=== PATIENT | female | born 1975 | race American Indian/Alaskan Native ===

== ENCOUNTER 2016-12-23 16:56 | Emergency (ER) | payer OTHER ==
[2016-12-23 16:56] VITALS: BMI 25.7
[2016-12-23 17:12] VITALS: BP 132/72; PULSE 89; RESP 19; TEMP 98.2; O2SAT 99
[2016-12-23] MEDS ORDERED: Belladonna-Phenobarbital PO STA (17:24)
--- NOTE | 2016-12-23 17:25 | C.PDOC ---
History Of Present Illness 41 yr old female presents to the ER with complaints of mild burning epigastric pain and several loose stool since last night. Patient also states of worse period pain. Patient denies taking any medication for the pain or recent antibiotic use. Also denies fever, nausea, vomiting, dysuria, weakness or numbness. Time Seen by Provider: 12/23/16 17:22 Chief Complaint (Nursing): Abdominal Pain History Per: Patient History/Exam Limitations: no limitations Onset/Duration Of Symptoms: Days (1) Current Symptoms Are (Timing): Still Present Severity: None Location Of Pain/Discomfort: Epigastric Past Medical History Reviewed: Historical Data, Nursing Documentation, Vital Signs Vital Signs: Last Vital Signs Temp 98.2 F 12/23/16 17:07 Pulse 89 12/23/16 17:07 Resp 19 12/23/16 17:07 BP 132/72 12/23/16 17:07 Pulse Ox 99 12/23/16 18:12 - Medical History PMH: Anemia Surgical History: Appendectomy, Cholecystectomy (X2), Tonsillectomy, - [facility] Procedures LOW CERVICAL (04/01/14) Family History: States: No Known Family Hx - Social History Hx Tobacco Use: No Hx Alcohol Use: No Hx Substance Use: No - Immunization History Hx Tetanus Toxoid Vaccination: Yes Hx Influenza Vaccination: Yes Hx Pneumococcal Vaccination: Yes Review Of Systems Except As Marked, All Systems Reviewed And Found Negative. Constitutional: Negative for: Fever Gastrointestinal: Positive for: Abdominal Pain (Epigastric), Diarrhea (Several loose stool). Negative for: Nausea, Vomiting Genitourinary: Negative for: Dysuria Neurological: Negative for: Weakness, Numbness Physical Exam - Physical Exam Appears: Non-toxic, No Acute Distress Skin: Normal Color, Warm, Dry, No Rash Head: Atraumatic, Normacephalic Eye(s): bilateral: Normal Inspection, PERRL, EOMI Oral Mucosa: Moist Neck: Normal, Normal ROM, Supple Chest: Symmetrical, No Tenderness Cardiovascular: Rhythm Regular, No Murmur Respiratory: Normal Breath Sounds, No Rales, No Rhonchi, No Stridor, No Wheezing Gastrointestinal/Abdominal: Soft, Tenderness (Slight epigastric tenderness ), No Guarding, No Rebound Extremity: Normal ROM, No Swelling Neurological/Psych: Oriented x3, Normal Speech, Normal Motor ED Course And Treatment O2 Sat by Pulse Oximetry: 99 Medical Decision Making Medical Decision Making: PLAN: * PO * Pepcid PO * Lidocaine Viscous PO Aware checked last entry 05/11 Plan dc home with meds Disposition Counseled Patient/Family Regarding: Diagnosis, Need For Followup - Disposition Disposition: HOME/ ROUTINE Disposition Time: 17:25 Condition: GOOD Prescriptions: Famotidine [Pepcid] 1 tab PO BID #14 tab oxyCODONE/Acetaminophen [Percocet 5/325 mg Tab] 1 tab PO Q4H PRN #12 tab PRN Reason: .severe pain Instructions: Abdominal Pain (ED), Acute Diarrhea (ED) - Clinical Impression Clinical Impression: Abdominal pain - Scribe Statement The provider has reviewed the documentation as recorded by the Darinel Scott Provider Attestation: All medical record entries made by the Darinel were at my direction and personally dictated by me. I have reviewed the chart and agree that the record accurately reflects my personal performance of the history, physical exam, medical decision making, and the department course for this patient. I have also personally directed, reviewed, and agree with the discharge instructions and disposition.
[2016-12-23] MEDS ORDERED: Belladonna-Phenobarbital ONE (17:49)
== END 2016-12-23 17:52 | disposition home or self-care (01) ==
LOC: C.ER 16:56
DX: R10.13 Epigastric pain (principal)

== ENCOUNTER 2017-03-01 22:33 | Emergency (ER) | payer OTHER ==
[2017-03-01 22:33] VITALS: BMI 25.7
[2017-03-01 22:42] VITALS: BP 108/76; PULSE 90; RESP 18; TEMP 98.4; O2SAT 100
--- NOTE | 2017-03-01 23:33 | C.PDOC ---
History Of Present Illness 41 year old patient presents to the ED complaining of right foot pain for the past 3 days. Patient has a history of gout. She is currently taking 500 mg of Naproxen, but the pain doesn't resolve. Patient is requesting stronger pain medications. Patient denies any injuries, fever, numbness or weakness. Time Seen by Provider: 03/01/17 22:42 Chief Complaint (Nursing): Lower Extremity Problem/Injury History Per: Patient History/Exam Limitations: no limitations Onset/Duration Of Symptoms: Days (3) Current Symptoms Are (Timing): Still Present Severity: Mild Pain Scale Rating Of: 3 Recent travel outside of the [place]: No Past Medical History Reviewed: Historical Data, Nursing Documentation, Vital Signs Vital Signs: Last Vital Signs Temp 98.4 F 03/01/17 22:42 Pulse 90 03/01/17 22:42 Resp 18 03/01/17 22:42 BP 108/76 03/01/17 22:42 Pulse Ox 100 03/01/17 23:44 - Medical History PMH: Anemia Surgical History: Appendectomy, Cholecystectomy (X2), Tonsillectomy, - [facility] Procedures LOW CERVICAL (04/01/14) Family History: States: Unknown Family Hx - Social History Hx Tobacco Use: No Hx Alcohol Use: No Hx Substance Use: No - Immunization History Hx Tetanus Toxoid Vaccination: Yes Hx Influenza Vaccination: Yes Hx Pneumococcal Vaccination: Yes Review Of Systems Except As Marked, All Systems Reviewed And Found Negative. Constitutional: Negative for: Fever Musculoskeletal: Positive for: Foot Pain (right) Neurological: Negative for: Weakness, Numbness Physical Exam - Physical Exam Appears: Non-toxic, No Acute Distress Skin: Warm, Dry, No Rash, No Ecchymosis Head: Atraumatic, Normacephalic Eye(s): bilateral: Normal Inspection Neck: Normal ROM, Supple Chest: Symmetrical Extremity: Normal ROM, No Pedal Edema, No Calf Tenderness, Capillary Refill (<2 seconds), No Deformity, No Swelling, Other (Right foot: (+) mild erythema and tenderness to the great toe, (-) swelling, (-)discharge, (+)normal ROM, (+) normal DP pulse) Neurological/Psych: Oriented x3, Normal Speech, Normal Motor, Normal Sensation Gait: Steady ED Course And Treatment O2 Sat by Pulse Oximetry: 100 (room air) Pulse Ox Interpretation: Normal Medical Decision Making Medical Decision Making: Impression: 41 y/o female with right foot pain Progress: Patient with history of gout and right foot pain. No signs of trauma or cellulitis. Patient is taking naproxen. [facility] reviewed: last narcotic was percocet 12/23/16. Will prescribe Tylenol #3 for severe pain. Advise follow up with PCP or rheumatology. Disposition Counseled Patient/Family Regarding: Diagnosis, Need For Followup, Rx Given - Disposition Disposition: HOME/ ROUTINE Disposition Time: 23:30 Condition: GOOD Additional Instructions: Take Naproxen or anti-inflammatory medication for pain Take Tylenol #3 for severe pain Follow up with your primary medical doctor or clinic in 2-5 days for further evaluation. Prescriptions: Acetaminophen with Codeine [Tylenol with Codeine No. 3 300 mg-30 mg] 1 tab PO Q8 PRN #10 tab PRN Reason: Pain, Moderate (4-7) Instructions: Gout (ED) - POA Present On Arrival: None - Clinical Impression Clinical Impression: Gout - PA / DJ INSTRUCTOR / Resident Statement MD/DO has reviewed & agrees with the documentation as recorded. - Scribe Statement The provider has reviewed the documentation as recorded by the Scribe Xin Art All medical record entries made by the Scribe were at my direction and personally dictated by me. I have reviewed the chart and agree that the record accurately reflects my personal performance of the history, physical exam, medical decision making, and the department course for this patient. I have also personally directed, reviewed, and agree with the discharge instructions and disposition.
== END 2017-03-01 23:27 | disposition home or self-care (01) ==
LOC: C.ER 22:33
DX: M10.9 Gout, unspecified (principal)

== ENCOUNTER 2017-04-12 17:43 | Emergency (ER) | payer OTHER ==
[2017-04-12 17:44] VITALS: BMI 25.7
[2017-04-12 17:55] VITALS: RESP 18; TEMP 98; O2SAT 100
[2017-04-12] MEDS ORDERED: Naproxen 550 mg Tab PO STA (18:12)
--- NOTE | 2017-04-12 18:14 | C.PDOC ---
Time Seen by Provider: 04/12/17 17:48 Chief Complaint (Nursing): Back Pain Past Medical History Vital Signs: Last Vital Signs Temp 98 F 04/12/17 17:52 Pulse 95 H 04/12/17 17:52 Resp 18 04/12/17 17:52 BP 111/75 04/12/17 17:52 Pulse Ox 100 04/12/17 17:52 - Medical History PMH: Anemia Surgical History: Appendectomy, Cholecystectomy (X2), Tonsillectomy, - [facility] Procedures LOW CERVICAL (04/01/14) Family History: States: Unknown Family Hx - Social History Hx Tobacco Use: No Hx Alcohol Use: No Hx Substance Use: No - Immunization History Hx Tetanus Toxoid Vaccination: Yes Hx Influenza Vaccination: Yes Hx Pneumococcal Vaccination: Yes ED Course And Treatment O2 Sat by Pulse Oximetry: 100 Disposition - Disposition Disposition: HOME/ ROUTINE Disposition Time: 18:12 Condition: STABLE Additional Instructions: please follow up with specialsit. return to er with worsening symptoms or concerns. Prescriptions: Cyclobenzaprine [Cyclobenzaprine HCl] 10 mg PO TID PRN #21 tab PRN Reason: Muscle Spasm Naproxen [Naprosyn] 500 mg PO BID PRN #14 tablet PRN Reason: Pain, Mild (1-3) Instructions: Sciatica (ED) - Clinical Impression Clinical Impression: Sciatica
--- NOTE | 2017-04-12 18:15 | C.PDOC ---
History Of Present Illness 41 y/o female, with past medical history of sciatica, presents to emergency department with complaints of low back radiating to the left lower extremity. Denies any fall, trauma, urinary symptoms, or fever. Time Seen by Provider: 04/12/17 17:48 Chief Complaint (Nursing): Back Pain History Per: Patient History/Exam Limitations: no limitations Onset/Duration Of Symptoms: Days Current Symptoms Are (Timing): Still Present Quality Of Discomfort: "Pain" Previous Symptoms: Back Pain. denies: Prior Injury, Prior Surgery Associated Symptoms: None. denies: Incontinence, New Weakness, New Numbness Exacerbating Factor(s): Nothing Recent travel outside of the [place]: No Additional History Per: Patient Past Medical History Reviewed: Historical Data, Nursing Documentation, Vital Signs Vital Signs: Last Vital Signs Temp 98 F 04/12/17 17:52 Pulse 89 04/12/17 19:01 Resp 18 04/12/17 19:01 BP 112/78 04/12/17 19:01 Pulse Ox 100 04/12/17 19:01 - Medical History PMH: Anemia Surgical History: Appendectomy, Cholecystectomy (X2), Tonsillectomy, - [facility] Procedures LOW CERVICAL (04/01/14) Family History: States: Unknown Family Hx - Social History Hx Tobacco Use: No Hx Alcohol Use: No Hx Substance Use: No - Immunization History Hx Tetanus Toxoid Vaccination: Yes Hx Influenza Vaccination: Yes Hx Pneumococcal Vaccination: Yes Review Of Systems Except As Marked, All Systems Reviewed And Found Negative. Constitutional: Negative for: Fever, Chills Gastrointestinal: Negative for: Nausea, Vomiting Genitourinary: Negative for: Dysuria, Frequency, Incontinence, Hematuria Musculoskeletal: Positive for: Back Pain Skin: Negative for: Rash Neurological: Negative for: Weakness, Numbness Physical Exam - Physical Exam Appears: Non-toxic, No Acute Distress Skin: Normal Color, Warm, Dry Head: Atraumatic, Normacephalic Eye(s): bilateral: Normal Inspection Neck: Normal ROM, Supple Chest: Symmetrical Cardiovascular: Rhythm Regular, No Murmur Respiratory: Normal Breath Sounds, No Rales, No Rhonchi, No Wheezing Gastrointestinal/Abdominal: Soft, No Tenderness Back: No Vertebral Tenderness, Paraspinal Tenderness (left side), Straight Leg Raising ((+) left leg) Extremity: Normal ROM, No Deformity Extremity: Bilateral: Atraumatic Neurological/Psych: Oriented x3, Normal Speech, Normal Cognition ED Course And Treatment O2 Sat by Pulse Oximetry: 100 (on RA) Pulse Ox Interpretation: Normal Progress Note: Patient was treated with Naproxen, and Flexeril. Medical Decision Making Medical Decision Making: suspected sciatica. pain improvd. neuro intact. no clincial concern for cord compression, no saddle anestheisa, Disposition - Disposition Disposition: HOME/ ROUTINE Disposition Time: 18:12 Condition: STABLE Additional Instructions: please follow up with specialsit. return to er with worsening symptoms or concerns. Prescriptions: Cyclobenzaprine [Cyclobenzaprine HCl] 10 mg PO TID PRN #21 tab PRN Reason: Muscle Spasm Naproxen [Naprosyn] 500 mg PO BID PRN #14 tablet PRN Reason: Pain, Mild (1-3) Instructions: Sciatica (ED) - Clinical Impression Clinical Impression: Sciatica - Scribe Statement The provider has reviewed the documentation as recorded by the Jodiibloyd Art All medical record entries made by the Jodiibloyd were at my direction and personally dictated by me. I have reviewed the chart and agree that the record accurately reflects my personal performance of the history, physical exam, medical decision making, and the department course for this patient. I have also personally directed, reviewed, and agree with the discharge instructions and disposition.
[2017-04-12] MEDS ORDERED: Naproxen 550 mg Tab PO ONE (18:19)
[2017-04-12 19:02] VITALS: BP 112/78; PULSE 89
== END 2017-04-12 19:02 | disposition home or self-care (01) ==
LOC: C.ER 17:43
DX: M54.32 Sciatica, left side (principal)

== ENCOUNTER 2017-06-26 09:42 | Emergency (ER) | payer OTHER ==
[2017-06-26 09:42] VITALS: BMI 25.7
[2017-06-26 10:02] VITALS: RESP 16; O2SAT 100
[2017-06-26 11:04] LABS: RBC URINE 12 /hpf (0-3); URINE BILIRUBIN NEGATIVE (NEGATIVE); URINE BLOOD 2+ (NEGATIVE); URINE COLOR Yellow (YELLOW); URINE GLUCOSE (UA) NORMAL (Normal); URINE KETONE NEGATIVE (NEGATIVE); URINE LEUKOCYTE ESTERASE NEG Leu/uL (Negative); URINE PROTEIN NEGATIVE (NEGATIVE); URINE UROBILINOGEN NORMAL mg/dL (0.2-1.0); WBC URINE 1 /hpf (0-5)
[2017-06-26 11:42] VITALS: BP 113/76; PULSE 90; TEMP 98.1
--- NOTE | 2017-06-26 13:18 | C.PDOC ---
History Of Present Illness 42 yr old female presents to the ER for evaluation of lower abdominal pain for the past 3 days. Patient states the pain increases with movement. States she has been doing more sit ups then usual. Otherwise, patient denies nausea, vomiting, diarrhea, dysuria, incontinence, hematuria, vaginal discharge, vaginal bleeding, back pain, weakness or numbness, Time Seen by Provider: 06/26/17 10:13 Chief Complaint (Nursing): Abdominal Pain History Per: Patient History/Exam Limitations: no limitations Onset/Duration Of Symptoms: Days (3) Past Medical History Reviewed: Historical Data, Nursing Documentation, Vital Signs Vital Signs: Last Vital Signs Temp 98.1 F 06/26/17 11:41 Pulse 90 06/26/17 11:41 Resp 16 06/26/17 11:41 BP 113/76 06/26/17 11:41 Pulse Ox 100 06/26/17 13:20 - Medical History PMH: Anemia Surgical History: Appendectomy, Cholecystectomy (X2), Tonsillectomy, - [facility] Procedures LOW CERVICAL (04/01/14) Family History: States: No Known Family Hx - Social History Hx Tobacco Use: No Hx Alcohol Use: No Hx Substance Use: No - Immunization History Hx Tetanus Toxoid Vaccination: Yes Hx Influenza Vaccination: Yes Hx Pneumococcal Vaccination: Yes Review Of Systems Except As Marked, All Systems Reviewed And Found Negative. Gastrointestinal: Positive for: Abdominal Pain (Lower). Negative for: Nausea, Vomiting, Diarrhea Genitourinary: Negative for: Dysuria, Incontinence, Hematuria, Vaginal Discharge , Vaginal Bleeding Musculoskeletal: Negative for: Back Pain Neurological: Negative for: Weakness, Numbness Physical Exam - Physical Exam Appears: Non-toxic, No Acute Distress Skin: Warm, Dry, No Rash Head: Atraumatic, Normacephalic Chest: Symmetrical, No Tenderness Cardiovascular: Rhythm Regular, No Murmur Respiratory: Normal Breath Sounds, No Rales, No Rhonchi, No Stridor, No Wheezing Gastrointestinal/Abdominal: Normal Exam, Soft, No Tenderness, No Guarding, No Rebound Back: Normal Inspection, No CVA Tenderness Extremity: Normal ROM, No Swelling Neurological/Psych: Oriented x3, Normal Speech, Normal Motor ED Course And Treatment O2 Sat by Pulse Oximetry: 100 (RA) Pulse Ox Interpretation: Normal Medical Decision Making Medical Decision Making: PLAN: * POC * Urinalysis Disposition - Disposition Disposition: HOME/ ROUTINE Disposition Time: 11:10 Condition: GOOD Additional Instructions: Thank you for letting us take care of you today. Your provider was Dr. Hoyt. You were treated for muscle strain. The emergency medical care you received today was directed at your acute symptoms. If you were prescribed any medication, please fill it and take as directed. It may take several days for your symptoms to resolve. Return to the Emergency Department if your symptoms worsen, do not improve, or if you have any other problems. Please contact your doctor or call one of the physicians/clinics you have been referred to that are listed on the Patient Visit Information form that is included in your discharge packet. Bring any paperwork you were given at discharge with you along with any medications you are taking to your follow up visit. Our treatment cannot replace ongoing medical care by a primary care provider (PCP) outside of the emergency department. Thank you for allowing the [facility] team to be part of your care today. Follow up with your doctor in 2-3 days for re-evaluation. You can take Tylenol or Ibuprofen for any discomfort that you experience. Instructions: Muscle Strain (ED) Forms: [employer] (Welsh) - Clinical Impression Clinical Impression: Muscle strain - Scribe Statement The provider has reviewed the documentation as recorded by the Scribe Roxanne Scott Provider Attestation: All medical record entries made by the Scribe were at my direction and personally dictated by me. I have reviewed the chart and agree that the record accurately reflects my personal performance of the history, physical exam, medical decision making, and the department course for this patient. I have also personally directed, reviewed, and agree with the discharge instructions and disposition.
== END 2017-06-26 11:45 | disposition home or self-care (01) ==
LOC: C.ER 09:42
DX: S39.011A Strain of muscle, fascia and tendon of abdomen, initial encounter (principal); X50.0XXA Overexertion from strenuous movement or load, initial encounter; Y93.89 Activity, other specified; Y92.89 Other specified places as the place of occurrence of the external cause

== ENCOUNTER 2017-07-25 22:25 | Emergency (ER) | payer OTHER ==
[2017-07-25 22:39] VITALS: BMI 24.9
[2017-07-25] MEDS ORDERED: Albuterol HFA 90 mcg/actuation (8 g) INH STA (22:46)
[2017-07-25 22:54] VITALS: TEMP 98.5
[2017-07-25 23:34] VITALS: BP 110/74; PULSE 80; RESP 19; O2SAT 100
--- NOTE | 2017-07-25 23:52 | C.PDOC ---
Time Seen by Provider: 07/25/17 22:31 Chief Complaint (Nursing): Cough, Cold, Congestion History Per: Patient Onset/Duration Of Symptoms: Days (about 2 weeks) Current Symptoms Are (Timing): Still Present Associated Symptoms: Cough Severity: Moderate Recent travel outside of the [place]: No Additional History Per: Prior Records Past Medical History Reviewed: Historical Data, Nursing Documentation, Vital Signs Vital Signs: Last Vital Signs Temp 98.5 F 07/25/17 22:38 Pulse 80 07/25/17 23:33 Resp 19 07/25/17 23:33 BP 110/74 07/25/17 23:33 Pulse Ox 100 07/25/17 23:33 - Medical History PMH: Anemia Surgical History: Appendectomy, Cholecystectomy (X2), Tonsillectomy, - [facility] Procedures LOW CERVICAL (04/01/14) Family History: States: Unknown Family Hx - Social History Hx Tobacco Use: No Hx Alcohol Use: No Hx Substance Use: No - Immunization History Hx Tetanus Toxoid Vaccination: Yes Hx Influenza Vaccination: Yes Hx Pneumococcal Vaccination: Yes Review Of Systems Except As Marked, All Systems Reviewed And Found Negative. Constitutional: Negative for: Fever Cardiovascular: Negative for: Chest Pain Respiratory: Positive for: Cough. Negative for: Shortness of Breath, Hemoptysis Gastrointestinal: Negative for: Vomiting, Abdominal Pain Musculoskeletal: Negative for: Neck Pain, Back Pain, Leg Pain Skin: Negative for: Rash Neurological: Negative for: Weakness, Numbness Physical Exam - Physical Exam Appears: Non-toxic, No Acute Distress Skin: Normal Color, Warm, Dry, No Rash Head: Atraumatic, Normacephalic Eye(s): bilateral: Normal Inspection, PERRL, EOMI Neck: Normal ROM, Supple Cardiovascular: Rhythm Regular Respiratory: No Accessory Muscle Use, Wheezing (mild, intermittent) Gastrointestinal/Abdominal: Soft, No Tenderness Back: No CVA Tenderness Extremity: Normal ROM Neurological/Psych: Oriented x3, Normal Motor, Normal Sensation ED Course And Treatment O2 Sat by Pulse Oximetry: 100 Pulse Ox Interpretation: Normal Reassessment Condition: Improved Disposition Counseled Patient/Family Regarding: Studies Performed, Diagnosis, Need For Followup, Rx Given - Disposition Referrals: Sydney Snider MD [Staff Provider] - Disposition: HOME/ ROUTINE Disposition Time: 23:51 Condition: IMPROVED Additional Instructions: Follow up with your doctor. Return to the ER if you develop fever, shortness of breath, worsening of symptoms or if you have any other concerns. Prescriptions: Benzonatate 200 mg PO TID PRN #30 capsule PRN Reason: Cough predniSONE [predniSONE Tab] 2 tab PO DAILY #6 tab Instructions: Upper Respiratory Infection (ED) - Clinical Impression Clinical Impression: Upper respiratory infection
== END 2017-07-25 23:55 | disposition home or self-care (01) ==
LOC: C.ER 22:25
DX: J06.9 Acute upper respiratory infection, unspecified (principal)

== ENCOUNTER 2017-10-27 11:46 | Emergency (ER) | payer OTHER ==
[2017-10-27 11:46] VITALS: BMI 24.9
[2017-10-27 12:06] VITALS: O2SAT 99
--- NOTE | 2017-10-27 13:48 | RAD ---
HISTORY: cough/pain COMPARISON: None available. TECHNIQUE: Chest PA and lateral FINDINGS: Examination limited by habitus. LUNGS: No focal consolidation. Please note that chest x-ray has limited sensitivity for the detection of pulmonary masses. PLEURA: No significant pleural effusion identified. No definite pneumothorax . CARDIOVASCULAR: The cardiomediastinal silhouette appears within normal limits of size. OSSEOUS STRUCTURES: No acute osseous abnormality identified. VISUALIZED UPPER ABDOMEN: Unremarkable. OTHER FINDINGS: None. IMPRESSION: No focal consolidation, significant pleural effusion, or definite pneumothorax identified.
--- NOTE | 2017-10-27 14:30 | C.PDOC ---
History Of Present Illness 42 y/o female with PMHx of Anemia presents to ED with complaints of chest tightness, cough and muscle aches for 2 days. Patient denies recent travel, sick contacts, sob, nausea, vomiting or any other complaints at this time. Time Seen by Provider: 10/27/17 12:28 Chief Complaint (Nursing): Chest Pain History Per: Patient History/Exam Limitations: no limitations Onset/Duration Of Symptoms: Days Current Symptoms Are (Timing): Still Present Quality: Tightness Past Medical History Reviewed: Historical Data, Nursing Documentation, Vital Signs Vital Signs: Last Vital Signs Temp 98.6 F 10/27/17 14:33 Pulse 88 10/27/17 14:33 Resp 18 10/27/17 14:33 BP 126/72 10/27/17 14:33 Pulse Ox 99 10/27/17 15:05 - Medical History PMH: Anemia Surgical History: Appendectomy, Cholecystectomy (X2), Tonsillectomy, - [facility] Procedures LOW CERVICAL (04/01/14) Family History: States: No Known Family Hx - Social History Hx Tobacco Use: No Hx Alcohol Use: No Hx Substance Use: No - Immunization History Hx Tetanus Toxoid Vaccination: Yes Hx Influenza Vaccination: Yes Hx Pneumococcal Vaccination: Yes Review Of Systems Constitutional: Negative for: Fever, Chills Cardiovascular: Positive for: Chest Pain Respiratory: Positive for: Cough. Negative for: Shortness of Breath Gastrointestinal: Negative for: Nausea, Vomiting Musculoskeletal: Positive for: Other (Muscle aches) Skin: Negative for: Rash Physical Exam - Physical Exam Appears: Non-toxic, No Acute Distress Skin: Warm, Dry, No Rash Head: Atraumatic, Normacephalic Oral Mucosa: Moist Neck: Supple Chest: Tenderness (Anterior Chest wall to palpation ) Cardiovascular: Rhythm Regular Respiratory: Normal Breath Sounds, No Rales, No Rhonchi, No Wheezing Gastrointestinal/Abdominal: Soft, No Tenderness, No Guarding, No Rebound Extremity: No Pedal Edema, Capillary Refill (<2 seconds) Neurological/Psych: Oriented x3 ED Course And Treatment ECG: Interpreted By Me, Viewed By Me ECG Rhythm: Sinus Rhythm Rate From EC (BPM) O2 Sat by Pulse Oximetry: 99 (RA) Pulse Ox Interpretation: Normal - Radiology CXR Interpretation: Yes: No Acute Disease. No: Cardiomegaly, Pnemothorax - Other Rad CXR X-Ray: Viewed By Me, Read By Radiologist Interpretation: Accession No. : [id number]. Patient Name / ID : BON Fernandes / [id number]. Exam Date : 10/27/2017 12:54:15 ( Approved ). Study Comment : Sex / Age : F / 42Y. Creator : Erendira Green MD. Dictator : Erendira Green MD. Cushion Cover Inspector : Head Of Music : Erendira Green MD. Approver2 : Report Date : 10/27/2017 13:46:46. My Comment : . HISTORY: cough/pain. COMPARISON: None available. TECHNIQUE: Chest PA and lateral. FINDINGS: Examination limited by habitus. LUNGS: No focal consolidation. Please note that chest x-ray has limited sensitivity for the detection of pulmonary masses. PLEURA: No significant pleural effusion identified. No definite pneumothorax . CARDIOVASCULAR: The cardiomediastinal silhouette appears within normal limits of size. OSSEOUS STRUCTURES: No acute osseous abnormality identified. VISUALIZED UPPER ABDOMEN: Unremarkable. OTHER FINDINGS: None. IMPRESSION: No focal consolidation, significant pleural effusion, or definite pneumothorax identified. Progress Note: Blood work, cxr, ecg, Influenza test ordered and negative. Patient is stable to be d/c home with PMD follow up. Disposition - Disposition Referrals: Sydney Snider MD [Staff Provider] - Disposition: HOME/ ROUTINE Disposition Time: 14:27 Condition: STABLE Additional Instructions: Follow up with PMD within 1-2 days. Return to Ed if feel worse. Prescriptions: Fluticasone Nasal [Flonase] 1 spr NS BID #1 spr Promethazine HCl/Codeine [Prometh-Codein 6.25-10 mg/5 ml] 5 ml PO .Q4-6H #150 ml Azithromycin [Zithromax] 250 mg PO DAILY #6 tab Instructions: Acute Bronchitis (ED) Forms: [employer] (Filipino) - Clinical Impression Clinical Impression: Bronchitis - PA / GENERAL ASSEMBLER / Resident Statement MD/DO has reviewed & agrees with the documentation as recorded. - Scribe Statement The provider has reviewed the documentation as recorded by the Jodiibloyd El All medical record entries made by the Darinel were at my direction and personally dictated by me. I have reviewed the chart and agree that the record accurately reflects my personal performance of the history, physical exam, medical decision making, and the department course for this patient. I have also personally directed, reviewed, and agree with the discharge instructions and disposition.
[2017-10-27 14:34] VITALS: BP 126/72; PULSE 88; RESP 18; TEMP 98.6
--- NOTE | 2017-10-28 19:25 | CARD ---
APPROVED REPORT EKG Measurement Heart [id number] <Conclusion> Normal sinus rhythm Normal ECG
== END 2017-10-27 14:34 | disposition home or self-care (01) ==
LOC: C.ER 11:46
DX: J40 Bronchitis, not specified as acute or chronic (principal)

== ENCOUNTER 2017-11-10 10:29 | Day surgery (SDC) | payer OTHER ==
[2017-11-03 08:31] VITALS: BMI 25.7
[2017-11-10] MEDS ORDERED: Propofol 10 mg/ml Inj (20 ML) ONE (11:30)
[2017-11-10] MEDS ORDERED: Midazolam 2 MG/2 ML VIAL ONE (11:30)
[2017-11-10] MEDS ORDERED: Lactated Ringer's 1,000 ML IV ONE ×2 (11:30→13:30)
[2017-11-10] MEDS ORDERED: Bupivacaine HCl 0.25% PF (10 ml) Inj ONE ×2 (11:33→11:40)
[2017-11-10] MEDS ORDERED: Succinylcholine Chloride 20 mg/ml Syr (5 ml) IV ONE (11:34)
[2017-11-10] MEDS ORDERED: Lidocaine Hydrochloride 5 ML INJ ONE (11:34)
[2017-11-10] MEDS ORDERED: Rocuronium 10 mg/ml (5 ml) ONE (11:34)
[2017-11-10] MEDS ORDERED: Esmolol 100 mg/10ml Inj IV ONE (13:04)
[2017-11-10] MEDS: HYDROmorphone 0.5 mg/0.5 ml ISec IVP PRN ×2 (15:00→15:30)
[2017-11-10 16:33] VITALS: BP 100/70; PULSE 73; RESP 18; TEMP 98; O2SAT 100
--- NOTE | 2017-11-14 11:45 | OP ---
PROCEDURE DATE: 11/10/2017. PREOPERATIVE DIAGNOSIS: Elective sterilization. POSTOPERATIVE DIAGNOSIS: Elective sterilization. PROCEDURE: Bilateral tubal ligation with bipolar cautery. SURGEON: Petrona Lambert MD. MANAGER OF RECRUITING: Will Winston MD. TYPE OF ANESTHESIA: General. ESTIMATED BLOOD LOSS: Less than 20 mL. COMPLICATIONS: None. Wagoner catheter had been placed to drainage and more than 20 mL of urine were noted. The catheter was removed following completion of the procedure. PATHOLOGY: No specimens. DESTINATION: The patient to recovery room in satisfactory condition. INDICATIONS: The patient is a 42-year-old female with a history of two sections and appendectomy who requested permanent sterilization. She declined hormonal contraception or IUD and stated she wanted a permanent method of management. Informed consent was obtained from the patient. Rest of the procedure were discussed including possible future ectopic . The patient agreed with planned procedure and desired a permanent sterilization. PROCEDURE: The patient was taken to the operating room with the IV running. She was placed in the dorsal supine position and underwent general anesthesia. She was then placed in the dorsal lithotomy position and exam under anesthesia showed the abdomen to be quite obese with the skin appearing flaccid and the abdomen was pendulous. At the site of the right appendectomy scar incision multiple scarring was noted around the surrounding skin. On pelvic exam the uterus was mobile and appeared to be of normal size. The adnexa showed no adnexal masses. The patient was then prepped and draped in the routine sterile fashion. A bivalve speculum was placed into the vagina and the anterior lip of the cervix was grasped with a single tooth tenaculum. The cervical os was dilated with the Mike dilator and the HUMI uterine manipulator was placed. Attention was then turned to the abdomen where a 5-mm infraumbilical incision was made with the scalpel. A 5 mm trocar was then used. Towel clamp was placed on the either side of the umbilicus at 3 and 9 o' clock approximately 2 cm from the umbilicus and a 5 mm trocar was used to attempt direct entry in to the abdomen. This was attempted approximately three times due to the obesity of the abdomen. Entry was not obtained and it was decided to proceed with the Adele trocar. The infraumbilical incision was extended to approximately 11 mm and the subcutaneous tissue was dissected down with Kaelyn. The fascia was subsequently identified and grasped on the either side with Kochers. Due to the thickness of the fascia, the tissue was incised with a scalpel following entry. Following this, the stay sutures of the 0 Vicryl were placed on either side of the fascia and the Adele was placed to confirm intraabdominal placement. The stay sutures were then sutured to the port. The abdomen was then insufflated with carbon dioxide. Following adequate insufflation, approximately 3.5 cm above the synthesis pubis and midline, a second port was attempted to be placed; however, placement was not obtained and so a lower incision just slightly superior to the Pfannenstiel and approximately 2 cm above the symphysis pubis was made. This incision was approximately 11 mm in size. The tissue was then dissected down with the Kaelyn followed by direct placement of the trocar. Of note, following entry into the abdomen, multiple adhesions were visualized with adhesions of the midline anterior abdominal wall and also adhesions along the bilateral adnexa along the more distal portions of the tube, which limited the mobility of either fallopian tube. The left fallopian tube was noted to be clubbed. Due to the nature of the adhesions, the camera was placed on either side of the adhesions to visualize either adnexa. The right fallopian tube was grasped approximately 2 cm from the interstitial portion of the tube with the LigaSure and was coagulated. Of note, the tissue was coagulated two more times immediately distal to the initial site of the coagulation. This was followed by incision of the tube along the central portion of the coagulation. The adhesions along the anterior abdominal wall was examined and was coagulated and incised. Following lysis of this adhesion, the pelvis area could be visualized more adequately. Attention was then turned to the left fallopian tube, which again was grasped approximately 2 cm distal to the interstitial portion with the LigaSure and was coagulated. This was again followed by further coagulation immediately distal to this to coagulate approximately 3 cm of the tube, which was then subsequently incising the central portion of this area. Following completion of the procedure, excellent hemostasis was confirmed. The inferior port was removed following opening of the port to rule out CO2 gas to escape in. The infraumbilical port was also removed. The two sutures on either side of the fascia were tied to one another and the central portion of that was also ligated again with 0 Vicryl. The subcutaneous tissue was closed with 3-0 Chromic and the skin was closed with 4-0 Monocryl in a subcuticular fashion. The midline incision at the site of the trocar placement, the fascia was grasped and reapproximated with 0 Vicryl. This was followed by a closure of the incision with Dermabond. The incision immediately superior to this which had only resulted in the skin incision and the abdominal entry was closed also with Dermabond. Attention was then turned to the pelvic area and the HUMI uterine manipulator was removed. Good hemostasis was confirmed. The patient was awakened from her anesthesia and returned to recovery room in satisfactory condition. Petrona Lambert MD
== END 2017-11-10 17:51 | disposition home or self-care (01) ==
LOC: C.SDS 10:29
PROVIDERS: ATTEND Obstetrics & Gynecology
DX: Z30.2 Encounter for sterilization (principal); K66.0 Peritoneal adhesions (postprocedural) (postinfection)
CPT/HCPCS: 49329; 58670; J1100; J1170; J2250; J2405; J2704; J3010; J7120

== ENCOUNTER 2017-12-17 23:36 | Emergency (ER) | payer OTHER ==
[2017-12-17 23:36] VITALS: BMI 25.7
[2017-12-17 23:44] VITALS: TEMP 97.7; O2SAT 99
[2017-12-18] MEDS ORDERED: Sodium Chloride 0.9% 1,000 ML ONE (00:11)
[2017-12-18] MEDS ORDERED: Morphine 4 MG/ML VIAL ONE ×3 (00:11→03:26)
[2017-12-18] MEDS ORDERED: Sodium Chloride 0.9% 1,000 ML IV ONE (00:14)
[2017-12-18] MEDS ORDERED: Morphine 4 MG/ML VIAL IV ONE ×2 (00:15→02:53)
--- NOTE | 2017-12-18 00:28 | C.PDOC ---
History Of Present Illness 42 y/o female presents to the Emergency Department complaining of left flank pain with sudden onset 3 hours ago. Pain is constant, sharp, rated 10/10, and radiating down the left leg. Symptoms associated with nausea and vomiting, (non- bilious, non-bloody). Patient has never had this pain before. She denies any diarrhea, fever, or chills. PMD: Med Surg Clinic Time Seen by Provider: 12/18/17 00:10 Chief Complaint (Nursing): Abdominal Pain History Per: Patient History/Exam Limitations: no limitations Onset/Duration Of Symptoms: Hrs (x3) Current Symptoms Are (Timing): Still Present Pain Scale Rating Of: 10 Associated Symptoms: Nausea, Vomiting Past Medical History Reviewed: Historical Data, Nursing Documentation, Vital Signs Vital Signs: Last Vital Signs Temp 97.7 F 12/17/17 23:44 Pulse 94 H 12/18/17 03:55 Resp 20 12/18/17 03:55 BP 111/78 12/18/17 03:55 Pulse Ox 99 12/18/17 04:11 - Medical History PMH: Anemia, Bronchitis, Gall Bladder Disease Surgical History: Appendectomy (in 1990), Cholecystectomy, Tonsillectomy, C- Section Other Surgeries: Left retinal repair in 2011, tubal ligation 10/2017 - [facility] Procedures LOW CERVICAL (04/01/14) Family History: States: Unknown Family Hx - Social History Hx Tobacco Use: No Hx Alcohol Use: No Hx Substance Use: No - Immunization History Hx Tetanus Toxoid Vaccination: Yes Hx Influenza Vaccination: Yes Hx Pneumococcal Vaccination: Yes Review Of Systems Except As Marked, All Systems Reviewed And Found Negative. Constitutional: Negative for: Fever, Chills Eyes: Negative for: Pain, Vision Change ENT: Negative for: Ear Pain, Ear Discharge, Nose Congestion, Mouth Pain Cardiovascular: Negative for: Chest Pain, Palpitations, Orthopnea Respiratory: Negative for: Cough, Shortness of Breath, SOB with Excertion Gastrointestinal: Positive for: Nausea, Vomiting, Abdominal Pain (left flank pain). Negative for: Diarrhea Genitourinary: Negative for: Dysuria, Hematuria Musculoskeletal: Negative for: Neck Pain, Shoulder Pain Skin: Negative for: Rash Neurological: Negative for: Weakness Psych: Negative for: Anxiety Physical Exam - Physical Exam Appears: Non-toxic, No Acute Distress Skin: Normal Color, Warm, Dry Head: Atraumatic, Normacephalic Eye(s): bilateral: Normal Inspection, PERRL, EOMI Nose: Normal Neck: Normal ROM, Supple Chest: Symmetrical Cardiovascular: Rhythm Regular, No Murmur Respiratory: Normal Breath Sounds, No Accessory Muscle Use Gastrointestinal/Abdominal: Soft, No Tenderness, No Distention Back: CVA Tenderness (left), No Straight Leg Raising Extremity: Bilateral: Atraumatic, Normal Color And Temperature, Normal ROM Neurological/Psych: Oriented x3, Normal Speech ED Course And Treatment - Laboratory Results Result Diagrams: 12/18/17 00:35 12/18/17 00:35 O2 Sat by Pulse Oximetry: 99 (RA) Pulse Ox Interpretation: Normal - CT Scan/US CT abd/pelvis Other Rad Studies (CT/US): Read By Radiologist, Radiology Report Reviewed CT/US Interpretation: FINDINGS: Limitations: Lack of intravenous contrast. Lower thorax: Minimal atelectasis. ABDOMEN: Liver: Unremarkable. Gallbladder and bile ducts: No calcified stones. No ductal dilation. Pancreas: Unremarkable. No ductal dilation. Spleen: No splenomegaly. Adrenals: No mass. Kidneys and ureters: Probable RIGHT renal cyst. Punctate calculus within RIGHT kidney. Mild. pelvocaliectasis of LEFT kidney. Mildly dilated LEFT proximal ureter. 0.3 x 0.3 x 0.4 cm calculus. within LEFT mid ureter. Stomach and bowel: Segmental areas of probable underdistention of colon. No definite mural. thickening. No obstruction. Appendix: Appendectomy. PELVIS: Bladder: Unremarkable. No stones. Reproductive: Unremarkable as visualized. ABDOMEN and PELVIS: Intraperitoneal space: No significant fluid collection. No free air. Bones/joints: No acute fracture. Soft tissues: Tiny umbilical hernia containing fat. Mild focal scarring lower anterior abdominal wall. Vasculature : Several rounded calcifications within retroperitoneum and pelvis, most likely. phleboliths. No aneurysm. Lymph nodes: No pathologically enlarged lymph nodes. IMPRESSION: 1. LEFT mid ureteral calculus with mild hydroureteronephrosis. 2. Incidental/non-acute findings are described above. Thank you for allowing us to participate in the care of your patient. Dictated and Authenticated by: Luis Carlos Mejia MD. 12/18/2017 2:33 AM Eastern Time ([place] & [place]) Medical Decision Making Medical Decision Making: Prior records reviewed: Patient was last seen here in the ED on 10/27 for chest pain and was diagnosed with bronchitis. Prior to that patient was seen 07/25/17 for URI, and 06/26/17 with muscle strain. Initial Impression: 42 year old with left flank pain Time: 00:16 Initial Plan: * HCG, qualitative urine * Urinalysis * CMP * CBC * Morphine 4 mg IV * Reglan 10 mg IV * IV fluids * Toradol 15 mg IV * CT Abd/Pelvis W/O contrast 00:51 On reevaluation, patient feels improved after meds given. Labs reviewed: CBC is unremarkable 2:15 Pain returned, will give second dose of Morphine. 3:52 On reevaluation patient reports she feels better. Will discharge home with prescription for Naprosyn and Percocet. Counseled regarding diagnosis of kidney stones and the need for follow up with urologist. Patient is agreeable with and understanding of discharge plan. Return precautions discussed in detail. Disposition Counseled Patient/Family Regarding: Studies Performed, Diagnosis, Rx Given - Disposition Referrals: Ron Clay MD [Staff Provider] - Manjit Mccann MD [Staff Provider] - Disposition: HOME/ ROUTINE Disposition Time: 03:58 Condition: STABLE Prescriptions: Naproxen [Naprosyn] 500 mg PO BID PRN #10 tablet PRN Reason: Pain, Moderate (4-7) oxyCODONE/Acetaminophen [Percocet 5/325 mg Tab] 1 ea PO Q6 PRN #10 tab PRN Reason: Pain, Severe (8-10) Instructions: Hydronephrosis, Adult (DC) Forms: [facility] (Sudanese) - POA Present On Arrival: None - Clinical Impression Clinical Impression: Nausea, Vomiting, Ureteral stone with hydronephrosis - Scribe Statement The provider has reviewed the documentation as recorded by the Darinel Elizalde Provider Attestation: All medical record entries made by the Darinel were at my direction and personally dictated by me. I have reviewed the chart and agree that the record accurately reflects my personal performance of the history, physical exam, medical decision making, and the department course for this patient. I have also personally directed, reviewed, and agree with the discharge instructions and disposition.
[2017-12-18 00:46] LABS: BASO % 0.4 % (0.0-2.0); EOS # 0.1 K/uL (0.0-0.7); EOS % 1.4 % (0.0-4.0); HEMOGLOBIN 10.7 g/dL (11.0-16.0); LYMPH # 2.3 K/uL (1.0-4.3); LYMPH % 44.7 % (20.0-40.0); MEAN CELL VOLUME 82.2 fL (81.0-99.0); MEAN CORPUSCULAR HEMOGLOBIN 27.3 pg (27.0-31.0); MEAN CORPUSCULAR HGB CONC 33.2 g/dL (33.0-37.0); MEAN PLATELET VOLUME 7.6 fL (7.2-11.7); MONO # 0.5 K/uL (0.0-0.8); MONO % 8.8 % (0.0-10.0); NEUT # 2.3 K/uL (1.8-7.0); NEUT % 44.7 % (50.0-75.0); NRBC % 0.1 % (0.0-2.0); RBC 3.94 Mil/uL (3.80-5.20); RED CELL DISTRIBUTION WIDTH 14.5 % (11.5-14.5); WHITE BLOOD COUNT 5.2 K/uL (4.8-10.8)
[2017-12-18 00:57] LABS: ALB/GLOB RATIO 1.1 (1.0-2.1); ALBUMIN 4.1 g/dL (3.5-5.0); ALT/SGPT 29 U/L (9-52); AST/SGOT 26 U/L (14-36); BLOOD UREA NITROGEN 13 mg/dL (7-17); GFR AFRICAN-AMERICAN > 60; GFR NON-AFRICAN AMERICAN > 60
[2017-12-18 01:26] LABS: SQUAMOUS EPITHIAL 4 /hpf (0-5); URINE BILIRUBIN NEGATIVE (NEGATIVE); URINE BLOOD 3+ (NEGATIVE); URINE CLARITY Hazy (Clear); URINE COLOR Yellow (YELLOW); URINE GLUCOSE (UA) NORMAL (Normal); URINE LEUKOCYTE ESTERASE NEG Leu/uL (Negative); URINE PROTEIN 2+ mg/dL (NEGATIVE); URINE UROBILINOGEN NORMAL mg/dL (0.2-1.0)
[2017-12-18 01:30] LABS: HCG,QUALITATIVE URINE NEGATIVE (NEGATIVE)
[2017-12-18 02:29] VITALS: RESP 20
--- NOTE | 2017-12-18 02:33 | CT ---
EXAM: CT Abdomen and Pelvis Without Intravenous Contrast CLINICAL HISTORY: 42 years old, female; Pain; Abdominal pain; Flank; Left lower quadrant (llq); Prior surgery; Surgery date: 6+ months; Surgery type: Appendectomy; Additional info: Abd pain TECHNIQUE: Axial computed tomography images of the abdomen and pelvis without intravenous contrast. All CT scans at this facility use one or more dose reduction techniques, viz.: automated exposure control; ma/kV adjustment per patient size (including targeted exams where dose is matched to indication; i.e. head); or iterative reconstruction technique. Coronal and sagittal reformatted images were created and reviewed. COMPARISON: No relevant prior studies available. FINDINGS: Limitations: Lack of intravenous contrast. Lower thorax: Minimal atelectasis. ABDOMEN: Liver: Unremarkable. Gallbladder and bile ducts: No calcified stones. No ductal dilation. Pancreas: Unremarkable. No ductal dilation. Spleen: No splenomegaly. Adrenals: No mass. Kidneys and ureters: Probable RIGHT renal cyst. Punctate calculus within RIGHT kidney. Mild pelvocaliectasis of LEFT kidney. Mildly dilated LEFT proximal ureter. 0.3 x 0.3 x 0.4 cm calculus within LEFT mid ureter. Stomach and bowel: Segmental areas of probable underdistention of colon. No definite mural thickening. No obstruction. Appendix: Appendectomy. PELVIS: Bladder: Unremarkable. No stones. Reproductive: Unremarkable as visualized. ABDOMEN and PELVIS: Intraperitoneal space: No significant fluid collection. No free air. Bones/joints: No acute fracture. Soft tissues: Tiny umbilical hernia containing fat. Mild focal scarring lower anterior abdominal wall Vasculature: Several rounded calcifications within retroperitoneum and pelvis, most likely phleboliths. No aneurysm. Lymph nodes: No pathologically enlarged lymph nodes. IMPRESSION: 1. LEFT mid ureteral calculus with mild hydroureteronephrosis. 2. Incidental/non-acute findings are described above.
[2017-12-18 04:21] VITALS: BP 111/78; PULSE 94
== END 2017-12-18 03:50 | disposition home or self-care (01) ==
LOC: C.ER 23:36
DX: N13.2 Hydronephrosis with renal and ureteral calculous obstruction (principal); R11.2 Nausea with vomiting, unspecified
CPT/HCPCS: 74176; 80053; 81001; 84702; 84703; 85025; 96374; 96375; 96376; 99285; J1885; J2270; J2765; J7040

== ENCOUNTER 2017-12-18 13:47 | Inpatient (IN) | payer OTHER ==
[2017-12-18 13:52] VITALS: BMI 26.6
[2017-12-18] MEDS ORDERED: Sodium Chloride 0.9% 1,000 ML IV ONE ×2 (13:57→16:18)
[2017-12-18] MEDS ORDERED: Sodium Chloride 0.9% 1,000 ML ONE (14:10)
[2017-12-18 14:11] LABS: BASO % 0.3 % (0.0-2.0); EOS % 0.2 % (0.0-4.0); HEMOGLOBIN 10.1 g/dL (11.0-16.0); LYMPH # 0.7 K/uL (1.0-4.3); LYMPH % 9.1 % (20.0-40.0); MEAN CELL VOLUME 82.2 fL (81.0-99.0); MEAN CORPUSCULAR HEMOGLOBIN 27.3 pg (27.0-31.0); MEAN CORPUSCULAR HGB CONC 33.3 g/dL (33.0-37.0); MEAN PLATELET VOLUME 7.4 fL (7.2-11.7); MONO # 0.6 K/uL (0.0-0.8); MONO % 7.5 % (0.0-10.0); NEUT # 6.7 K/uL (1.8-7.0); NEUT % 82.9 % (50.0-75.0); NRBC % 0.1 % (0.0-2.0); PLATELET COUNT 368 K/uL (130-400); RBC 3.71 Mil/uL (3.80-5.20); RED CELL DISTRIBUTION WIDTH 14.7 % (11.5-14.5); WHITE BLOOD COUNT 8.1 K/uL (4.8-10.8)
--- NOTE | 2017-12-18 14:21 | C.PDOC ---
History Of Present Illness Patient is a 42 y/o female who presents to the ED with complaints of left flank and left lower quadrant abdominal pain. Patient reports to have been seen last night in ED and diagnosed with left kidney stone and hydronephrosis; patient was advised to be admitted, but decided to go home with percocets for pain. Patient notes onset of vomiting and intolerable pain at home, prompting ED visit today. Denies fever, chills, or urinary symptoms. No other physical complaints at this time. Time Seen by Provider: 12/18/17 13:57 Chief Complaint (Nursing): Back Pain History Per: Patient History/Exam Limitations: no limitations Onset/Duration Of Symptoms: Days Current Symptoms Are (Timing): Worse Recent travel outside of the [place]: No Past Medical History Reviewed: Historical Data, Nursing Documentation, Vital Signs Vital Signs: Last Vital Signs Temp 98.6 F 12/18/17 13:52 Pulse 86 12/18/17 13:52 Resp 20 12/18/17 13:52 BP 110/64 12/18/17 13:52 Pulse Ox 99 12/18/17 14:29 - Medical History PMH: Anemia, Bronchitis, Gall Bladder Disease, Kidney Stones Surgical History: Appendectomy (in 1990), Cholecystectomy, Tonsillectomy, C- Section - [facility] Procedures LOW CERVICAL (04/01/14) Family History: States: No Known Family Hx - Social History Hx Tobacco Use: No Hx Alcohol Use: No Hx Substance Use: No - Immunization History Hx Tetanus Toxoid Vaccination: Yes Hx Influenza Vaccination: Yes Hx Pneumococcal Vaccination: Yes Review Of Systems Constitutional: Negative for: Fever, Chills Gastrointestinal: Positive for: Vomiting, Abdominal Pain (left flank and LLQ) Genitourinary: Negative for: Dysuria, Frequency, Hematuria, Vaginal Discharge Physical Exam - Physical Exam Appears: Well, Non-toxic, No Acute Distress Skin: Normal Color, Warm, Dry Head: Atraumatic, Normacephalic Eye(s): bilateral: Normal Inspection Oral Mucosa: Moist Chest: Symmetrical Cardiovascular: Rhythm Regular, No Murmur Respiratory: Normal Breath Sounds, No Rales, No Rhonchi, No Wheezing Gastrointestinal/Abdominal: Soft, No Tenderness, No Guarding, No Rebound Back: CVA Tenderness (mild left CVA) Neurological/Psych: Oriented x3, Normal Speech, Normal Cognition ED Course And Treatment - Laboratory Results Result Diagrams: 12/18/17 14:06 12/18/17 14:06 Lab Interpretation: No Acute Changes O2 Sat by Pulse Oximetry: 99 Pulse Ox Interpretation: Normal Progress Note: Blood work and UA ordered. Toradol, zofran, and IV fluids administered. Reevaluation Time: 14:46 Reassessment Condition: Improved (Patient comfortable in ED.) - Physician Consult Information Physician Contacted: Salas Magallanes Outcome Of Conversation: Patient accepted for admission and treatment of left renal colic. Disposition - Disposition Disposition: HOSPITALIZED Disposition Time: 14:47 Condition: STABLE - POA Present On Arrival: None - Clinical Impression Clinical Impression: Renal colic on left side - Scribe Statement The provider has reviewed the documentation as recorded by the Scribe Lalitha Louise All medical record entries made by the Scribe were at my direction and personally dictated by me. I have reviewed the chart and agree that the record accurately reflects my personal performance of the history, physical exam, medical decision making, and the department course for this patient. I have also personally directed, reviewed, and agree with the discharge instructions and disposition.
[2017-12-18 14:24] LABS: ALB/GLOB RATIO 1.2 (1.0-2.1); ALT/SGPT 14 U/L (9-52); AST/SGOT 29 U/L (14-36); BLOOD UREA NITROGEN 11 mg/dL (7-17); CALCIUM 8.5 mg/dl (8.6-10.4); GFR AFRICAN-AMERICAN > 60; GFR NON-AFRICAN AMERICAN > 60
[2017-12-18] MEDS ORDERED: Alum-Mag Hydrox-Simethicone Susp (30 mL) PO STA (14:48)
[2017-12-18] MEDS ORDERED: Alum-Mag Hydrox-Simethicone Susp (30 mL) ONE (14:56)
[2017-12-18 15:09] LABS: EOSINOPHIL 1 % (0-4); LYMPHOCYTE 9 % (20-40); MONOCYTE 6 % (0-10); NEUTROPHIL 84 % (50-75); PLATELET ESTIMATE NORMAL (NORMAL); TOTAL CELLS COUNTED 100
[2017-12-18 15:10] LABS: ANISOCYTOSIS SLIGHT; HYPOCHROMIC SLIGHT; OVALOCYTES SLIGHT; POIKILOCYTOSIS SLIGHT; POLYCHROMIC SLIGHT; SCHISTOCYTES SLIGHT
[2017-12-18 16:51] LABS: SQUAMOUS EPITHIAL 5 /hpf (0-5); URINE BACTERIA OCC (<OCC); URINE BILIRUBIN NEGATIVE (NEGATIVE); URINE BLOOD 1+ (NEGATIVE); URINE CLARITY Clear (Clear); URINE COLOR Straw (YELLOW); URINE GLUCOSE (UA) NORMAL (Normal); URINE PROTEIN NEGATIVE (NEGATIVE); URINE UROBILINOGEN NORMAL mg/dL (0.2-1.0)
[2017-12-18 16:59] LABS: URINE LEUKOCYTE ESTERASE NEGATIVE Leu/uL (Negative)
[2017-12-19 06:29] LABS: INR 1.1
--- NOTE | 2017-12-19 08:22 | CP.PCM.CON ---
Past Patient History - Infectious Disease Hx of Infectious Diseases: None - Past Medical History & Family History Past Medical History?: Yes - Past Social History Smoking Status: Never Smoked - CARDIAC Hx Cardiac Disorders: No - PULMONARY Hx Respiratory Disorders: Yes Hx Bronchitis: Yes - NEUROLOGICAL Hx Neurological Disorder: No - HEENT Hx HEENT Problems: Yes (HX DETACHED RETINA) - RENAL Hx Chronic Kidney Disease: Yes Hx Kidney Stones: Yes - ENDOCRINE/METABOLIC Hx Endocrine Disorders: No - HEMATOLOGICAL/ONCOLOGICAL Hx Blood Disorders: Yes Hx Anemia: Yes - INTEGUMENTARY Hx Dermatological Problems: No - MUSCULOSKELETAL/RHEUMATOLOGICAL Hx Musculoskeletal Disorders: Yes Hx Back Pain: Yes Hx Falls: No Hx Gout: Yes Other/Comment: Sciatica - GASTROINTESTINAL Hx Gastrointestinal Disorders: Yes Hx Gall Bladder Disease: Yes - GENITOURINARY/GYNECOLOGICAL Hx Genitourinary Disorders: Yes Hx Urinary Tract Infection: Yes (4 YEARS AGO) - PSYCHIATRIC Hx Psychophysiologic Disorder: No Hx Substance Use: No - SURGICAL HISTORY Hx Surgeries: Yes Hx Appendectomy: Yes (in 1990) Hx Cholecystectomy: Yes Hx Tonsillectomy: Yes - ANESTHESIA Hx Anesthesia: Yes Hx Anesthesia Reactions: No Hx Malignant Hyperthermia: No Has any member of the family had a problem w/ anesthesia?: No Meds Allergies/Adverse Reactions: Allergies Allergy/AdvReac Type Severity Reaction Status Date / Time No Known Allergies Allergy Verified 12/18/17 13:51 - Medications Medications: Current Medications Morphine Sulfate (Morphine) 2 mg IVP Q4 PRN PRN Reason: Pain, moderate (4-7) Last Admin: 12/19/17 08:02 Dose: 2 mg Tamsulosin HCl (Flomax) 0.4 mg PO DAILY RAMÍREZ Results - Vital Signs Recent Vital Signs: Last Vital Signs Temp 98.3 F 12/19/17 07:35 Pulse 93 H 12/19/17 07:35 Resp 20 12/19/17 07:35 BP 120/71 12/19/17 07:35 Pulse Ox 96 12/19/17 07:35 - Labs Result Diagrams: 12/18/17 14:06 12/18/17 14:06 Labs: Laboratory Results - last 24 hr 12/18/17 12/18/17 12/18/17 14:06 14:06 16:42 WBC 8.1 D RBC 3.71 L Hgb 10.1 L Hct 30.5 L MCV 82.2 MCH 27.3 MCHC 33.3 RDW 14.7 H Plt Count 368 MPV 7.4 Neut % (Auto) 82.9 H Lymph % (Auto) 9.1 L [place] % (Auto) 7.5 Eos % (Auto) 0.2 Baso % (Auto) 0.3 Neut # (Auto) 6.7 Lymph # (Auto) 0.7 L [place] # (Auto) 0.6 Eos # (Auto) 0.0 Baso # (Auto) 0.0 Neutrophils % (Manual) 84 H Lymphocytes % (Manual) 9 L Monocytes % (Manual) 6 Eosinophils % (Manual) 1 Platelet Estimate Normal Polychromasia Slight Hypochromasia (manual) Slight Poikilocytosis (manual Slight Anisocytosis (manual) Slight Ovalocytes Slight Schistocytes Slight PT INR APTT Sodium 141 Potassium 3.9 Chloride 105 Carbon Dioxide 24 Anion Gap 16 BUN 11 Creatinine 0.9 Est GFR ( Amer) > 60 Est GFR (Non-Af Amer) > 60 Random Glucose 105 Calcium 8.5 L Total Bilirubin 0.5 AST 29 ALT 14 Alkaline Phosphatase 69 Total Protein 7.4 Albumin 4.0 Globulin 3.4 Albumin/Globulin Ratio 1.2 Urine Color Straw Urine Clarity Clear Urine pH 7.0 Ur Specific [place] 1.014 Urine Protein Negative Urine Glucose (UA) Normal Urine Ketones 1+ H Urine Blood 1+ H Urine Nitrate Negative Urine Bilirubin Negative Urine Urobilinogen Normal Ur Leukocyte Esterase Negative Urine WBC (Auto) 1 Urine RBC (Auto) 3 Ur Squamous Epith Cells 5 Urine Bacteria Occ H Urine HCG, Qual 12/19/17 12/19/17 04:53 06:16 WBC RBC Hgb Hct MCV MCH MCHC RDW Plt Count MPV Neut % (Auto) Lymph % (Auto) [place] % (Auto) Eos % (Auto) Baso % (Auto) Neut # (Auto) Lymph # (Auto) [place] # (Auto) Eos # (Auto) Baso # (Auto) Neutrophils % (Manual) Lymphocytes % (Manual) Monocytes % (Manual) Eosinophils % (Manual) Platelet Estimate Polychromasia Hypochromasia (manual) Poikilocytosis (manual Anisocytosis (manual) Ovalocytes Schistocytes PT 12.0 INR 1.1 APTT 25 Sodium Potassium Chloride Carbon Dioxide Anion Gap BUN Creatinine Est GFR ( Amer) Est GFR (Non-Af Amer) Random Glucose Calcium Total Bilirubin AST ALT Alkaline Phosphatase Total Protein Albumin Globulin Albumin/Globulin Ratio Urine Color Urine Clarity Urine pH Ur Specific [place] Urine Protein Urine Glucose (UA) Urine Ketones Urine Blood Urine Nitrate Urine Bilirubin Urine Urobilinogen Ur Leukocyte Esterase Urine WBC (Auto) Urine RBC (Auto) Ur Squamous Epith Cells Urine Bacteria Urine HCG, Qual Negative Assessment & Plan - Assessment and Plan (Free Text) Assessment: Imp: L renal colic L ureteral calculus full note t/f YS - Date & Time Date: 12/19/17 Time: 07:55
[2017-12-19] MEDS ORDERED: Lactated Ringer's 1,000 ML IV ONE (09:15)
[2017-12-19] MEDS ORDERED: cefTRIAXone 1 gm 1 GM/100 ML BAG IVPB ONE (09:17)
[2017-12-19] MEDS ORDERED: Iohexol 240 (50 ml) ONE (09:17)
[2017-12-19] MEDS ORDERED: Propofol 10 mg/ml Inj (20 ML) ONE (09:27)
[2017-12-19] MEDS ORDERED: Midazolam 2 MG/2 ML VIAL ONE (09:27)
[2017-12-19] MEDS ORDERED: Lidocaine Hydrochloride 5 ML INJ ONE (09:38)
--- NOTE | 2017-12-19 10:19 | PCM.SURG1 ---
Surgeon's Initial Post Op Note - Surgeon's Notes Surgeon: Yudelka Horne Emotional Disabilities Teacher: none Type of Anesthesia: General LMA Pre-Operative Diagnosis: L renal colic. L ureteral calculus Operative Findings: L hydronephrosis Post-Operative Diagnosis: same Operation Performed: cysto. L uretroscopy. L rtg pyelogram. insertion of L ureteral stent. EUA Specimen/Specimens Removed: urine Estimated Blood Loss: EBL {In ML}: 0 Blood Products Given: N/A Drains Used: No Drains Date of Surgery/Procedure: 12/19/17 Time of Surgery/Procedure: 10:15
[2017-12-19] MEDS: HYDROmorphone 0.5 mg/0.5 ml ISec IVP PRN ×2 (11:04→11:15)
--- NOTE | 2017-12-19 13:24 | CP.PCM.HP ---
History of Present Illness - History of Present Illness History of Present Illness: Chief Complaint (Nursing): Back Pain History Of Present Illness Patient is a 42 y/o female who presents to the ED with complaints of left flank and left lower quadrant abdominal pain. Patient reports to have been seen last night in ED and diagnosed with left kidney stone and hydronephrosis; patient was advised to be admitted, but decided to go home with percocets for pain. Patient notes onset of vomiting and intolerable pain at home, prompting ED visit today. Denies fever, chills, or urinary symptoms. No other physical complaints at this time. Present on Admission - Present on Admission Any Indicators Present on Admission: Yes Past Patient History - Infectious Disease Hx of Infectious Diseases: None - Past Medical History & Family History Past Medical History?: Yes - Past Social History Smoking Status: Never Smoked - CARDIAC Hx Cardiac Disorders: No - PULMONARY Hx Respiratory Disorders: Yes Hx Bronchitis: Yes - NEUROLOGICAL Hx Neurological Disorder: No - HEENT Hx HEENT Problems: Yes (HX DETACHED RETINA) - RENAL Hx Chronic Kidney Disease: Yes Hx Kidney Stones: Yes - ENDOCRINE/METABOLIC Hx Endocrine Disorders: No - HEMATOLOGICAL/ONCOLOGICAL Hx Blood Disorders: Yes Hx Anemia: Yes - INTEGUMENTARY Hx Dermatological Problems: No - MUSCULOSKELETAL/RHEUMATOLOGICAL Hx Musculoskeletal Disorders: Yes Hx Back Pain: Yes Hx Falls: No Hx Gout: Yes Other/Comment: Sciatica - GASTROINTESTINAL Hx Gastrointestinal Disorders: Yes Hx Gall Bladder Disease: Yes - GENITOURINARY/GYNECOLOGICAL Hx Genitourinary Disorders: Yes Hx Urinary Tract Infection: Yes (4 YEARS AGO) - PSYCHIATRIC Hx Psychophysiologic Disorder: No Hx Substance Use: No - SURGICAL HISTORY Hx Surgeries: Yes Hx Appendectomy: Yes (in 1990) Hx Cholecystectomy: Yes Hx Tonsillectomy: Yes - ANESTHESIA Hx Anesthesia: Yes Hx Anesthesia Reactions: No Hx Malignant Hyperthermia: No Has any member of the family had a problem w/ anesthesia?: No Meds Home Medications: Home Medication List Medication Instructions Recorded Confirmed Type Ciprofloxacin HCl [Cipro] 500 mg PO BID #17 tablet 12/20/17 Rx Oxybutynin XL [Ditropan XL] 15 mg PO DAILY #14 ter 12/20/17 Rx Tamsulosin [Flomax] 0.4 mg PO DAILY #30 cap 12/20/17 Rx Allergies/Adverse Reactions: Allergies Allergy/AdvReac Type Severity Reaction Status Date / Time No Known Allergies Allergy Verified 12/18/17 13:51 Physical Exam - Constitutional Appears: No Acute Distress - Eye Exam Eye Exam: EOMI, Normal appearance, PERRL Pupil Exam: NORMAL ACCOMODATION, PERRL - Respiratory Exam Respiratory Exam: Clear to Auscultation Bilateral, NORMAL BREATHING PATTERN - Cardiovascular Exam Cardiovascular Exam: REGULAR RHYTHM - GI/Abdominal Exam GI & Abdominal Exam: Normal Bowel Sounds, Soft, Tenderness - Extremities Exam Extremities exam: Positive for: pedal edema Results - Vital Signs Recent Vital Signs: Last Vital Signs Temp 99 F 12/19/17 11:30 Pulse 86 12/19/17 11:30 Resp 11 L 12/19/17 11:30 BP 110/57 L 12/19/17 11:30 Pulse Ox 95 12/19/17 11:30 - Labs Result Diagrams: 12/20/17 07:15 12/20/17 07:15 Labs: Laboratory Results - last 24 hr 12/18/17 12/18/17 12/18/17 14:06 14:06 16:42 WBC 8.1 D RBC 3.71 L Hgb 10.1 L Hct 30.5 L MCV 82.2 MCH 27.3 MCHC 33.3 RDW 14.7 H Plt Count 368 MPV 7.4 Neut % (Auto) 82.9 H Lymph % (Auto) 9.1 L [place] % (Auto) 7.5 Eos % (Auto) 0.2 Baso % (Auto) 0.3 Neut # (Auto) 6.7 Lymph # (Auto) 0.7 L [place] # (Auto) 0.6 Eos # (Auto) 0.0 Baso # (Auto) 0.0 Neutrophils % (Manual) 84 H Lymphocytes % (Manual) 9 L Monocytes % (Manual) 6 Eosinophils % (Manual) 1 Platelet Estimate Normal Polychromasia Slight Hypochromasia (manual) Slight Poikilocytosis (manual Slight Anisocytosis (manual) Slight Ovalocytes Slight Schistocytes Slight PT INR APTT Sodium 141 Potassium 3.9 Chloride 105 Carbon Dioxide 24 Anion Gap 16 BUN 11 Creatinine 0.9 Est GFR ( Amer) > 60 Est GFR (Non-Af Amer) > 60 Random Glucose 105 Calcium 8.5 L Total Bilirubin 0.5 AST 29 ALT 14 Alkaline Phosphatase 69 Total Protein 7.4 Albumin 4.0 Globulin 3.4 Albumin/Globulin Ratio 1.2 Urine Color Straw Urine Clarity Clear Urine pH 7.0 Ur Specific [place] 1.014 Urine Protein Negative Urine Glucose (UA) Normal Urine Ketones 1+ H Urine Blood 1+ H Urine Nitrate Negative Urine Bilirubin Negative Urine Urobilinogen Normal Ur Leukocyte Esterase Negative Urine WBC (Auto) 1 Urine RBC (Auto) 3 Ur Squamous Epith Cells 5 Urine Bacteria Occ H Urine HCG, Qual 12/19/17 12/19/17 04:53 06:16 WBC RBC Hgb Hct MCV MCH MCHC RDW Plt Count MPV Neut % (Auto) Lymph % (Auto) [place] % (Auto) Eos % (Auto) Baso % (Auto) Neut # (Auto) Lymph # (Auto) [place] # (Auto) Eos # (Auto) Baso # (Auto) Neutrophils % (Manual) Lymphocytes % (Manual) Monocytes % (Manual) Eosinophils % (Manual) Platelet Estimate Polychromasia Hypochromasia (manual) Poikilocytosis (manual Anisocytosis (manual) Ovalocytes Schistocytes PT 12.0 INR 1.1 APTT 25 Sodium Potassium Chloride Carbon Dioxide Anion Gap BUN Creatinine Est GFR ( Amer) Est GFR (Non-Af Amer) Random Glucose Calcium Total Bilirubin AST ALT Alkaline Phosphatase Total Protein Albumin Globulin Albumin/Globulin Ratio Urine Color Urine Clarity Urine pH Ur Specific [place] Urine Protein Urine Glucose (UA) Urine Ketones Urine Blood Urine Nitrate Urine Bilirubin Urine Urobilinogen Ur Leukocyte Esterase Urine WBC (Auto) Urine RBC (Auto) Ur Squamous Epith Cells Urine Bacteria Urine HCG, Qual Negative Assessment & Plan (1) Abdominal pain Status: Acute (2) Renal colic on left side Status: Acute (3) Ureteral stone with hydronephrosis Status: Acute
--- NOTE | 2017-12-19 18:34 | RAD ---
PROCEDURE: Intraoperative Fluoroscopy. HISTORY: LT. RENAL COLIC FINDINGS: Fluoroscopic assistance was provided for left retrograde and cystogram stent placement. Please refer to the operative report from Dr. PACHECO, [place]. Submitted images from the current procedure: 6.0. Total fluoroscopic time (continuous mode) utilized during the procedure: seconds. 174.5. Total exam DLP: (mGy) 2.38
--- NOTE | 2017-12-19 18:35 | RAD ---
HISTORY: LT. RENAL COLIC COMPARISON: December 18, 2017. CT abdomen and pelvis FINDINGS: BOWEL: Normal. No obstruction. No free air. BONES: Normal. OTHER FINDINGS: Calculi identified on the prior CT scan are not apparent present study. IMPRESSION: No significant or acute findings to account for/ related to the clinical presentation.
[2017-12-20 03:08] VITALS: RESP 20; O2SAT 94
[2017-12-20] MEDS: Lactated Ringer's 1,000 ML IV SCH ×3 (03:24→11:43)
[2017-12-20 07:33] LABS: BASO % 0.3 % (0.0-2.0); EOS % 0.5 % (0.0-4.0); HEMOGLOBIN 9.9 g/dL (11.0-16.0); LYMPH # 1.7 K/uL (1.0-4.3); LYMPH % 32.6 % (20.0-40.0); MEAN CELL VOLUME 81.7 fL (81.0-99.0); MEAN CORPUSCULAR HEMOGLOBIN 27.7 pg (27.0-31.0); MEAN PLATELET VOLUME 7.5 fL (7.2-11.7); MONO # 0.6 K/uL (0.0-0.8); MONO % 10.5 % (0.0-10.0); NEUT % 56.1 % (50.0-75.0); RBC 3.57 Mil/uL (3.80-5.20); RED CELL DISTRIBUTION WIDTH 14.7 % (11.5-14.5); WHITE BLOOD COUNT 5.4 K/uL (4.8-10.8)
[2017-12-20 08:10] VITALS: BP 120/75; PULSE 85; TEMP 98.3
[2017-12-20 08:14] LABS: BLOOD UREA NITROGEN 6 mg/dL (7-17); CALCIUM 8.2 mg/dl (8.6-10.4); GFR AFRICAN-AMERICAN > 60; GFR NON-AFRICAN AMERICAN > 60
[2017-12-20] MEDS ORDERED: cefTRIAXone IV 1 gm in Dextros 50 ML IVPB ONE (09:30)
[2017-12-20] MEDS ORDERED: Potassium Chloride 20 mEq ER Tab PO ONE (10:45)
--- NOTE | 2017-12-20 12:08 | RAD ---
HISTORY: post Cysto. COMPARISON: December 18, 2017. FINDINGS: BOWEL: Normal. No obstruction. No free air. BONES: Normal. OTHER FINDINGS: Position of the double J stent catheter(s): Satisfactory IMPRESSION: No acute findings related to/accounting for the clinical presentation.
--- NOTE | 2017-12-20 13:56 | CP.PCM.PN ---
Subjective - Date & Time of Evaluation Date of Evaluation: 12/20/17 Time of Evaluation: 13:10 - Subjective Subjective: Patient seen today denies any chest pain, sob, N/V/, c/o left flank pain scale 8/10 , improved with pain medication s/p cystoscopy with stent by Dr. Horne on 12/19/17 a febrile Objective - Vital Signs/Intake and Output Vital Signs (last 24 hours): Temp Pulse Resp BP Pulse Ox 98.3 F 85 20 120/75 94 L 12/20/17 07:30 12/20/17 07:30 12/20/17 07:30 12/20/17 07:30 12/20/17 07:30 Intake and Output: 12/20/17 12/20/17 06:59 18:59 Output Total 700 Balance -700 - Medications Medications: Current Medications Lactated Ringer's (Lactated Ringer's) 1,000 mls @ 120 mls/hr IV .[id number] [facility] Last Admin: 12/20/17 11:43 Dose: Not Given Morphine Sulfate (Morphine) 2 mg IVP Q4 PRN PRN Reason: Pain, moderate (4-7) Last Admin: 12/20/17 08:12 Dose: 2 mg Tamsulosin HCl (Flomax) 0.4 mg PO DAILY [facility] Last Admin: 12/20/17 10:47 Dose: 0.4 mg - Labs Labs: 12/20/17 07:15 12/20/17 07:15 PT 12.0 SECONDS (9.7-12.2) 12/19/17 06:16 INR 1.1 12/19/17 06:16 APTT 25 SECONDS (21-34) 12/19/17 06:16 Assessment and Plan - Assessment and Plan (Free Text) Assessment: A/P 42 y/o female ADMITTED with left flank and left lower quadrant abdominal pain /renal calculi s/p cysto, L uretroscopy, L rtg pyelogram.and insertion of L ureteral stent seen by Dr. Horne cleared fro discharge home today and f/u with [facility] and Dr. Horne office D/W , cleared fro discharge home today Discharge plan discussed with patient, who understands and agrees with plan RX sent to [facility] pharmacy
--- NOTE | 2017-12-20 17:33 | CP.PCM.DIS ---
Provider - Provider Date of Admission: 12/18/17 14:48 Attending physician: Salas Magallanes MD Time Spent in preparation of Discharge (in minutes): 56 Hospital Course - Lab Results Lab Results: Micro Results 12/19/17 Unknown Urine,Kidney Urine Culture - Final No Growth (<1,000 CFU/ML) 12/19/17 Unknown Urine,Clean Catch Urine Culture - Final No Growth (<1,000 CFU/ML) 12/18/17 22:20 Urine Urine Culture - Preliminary Gram Negative Ac Most Recent Lab Values WBC 5.4 K/uL (4.8-10.8) 12/20/17 07:15 RBC 3.57 Mil/uL (3.80-5.20) L 12/20/17 07:15 Hgb 9.9 g/dL (11.0-16.0) L 12/20/17 07:15 Hct 29.1 % (34.0-47.0) L 12/20/17 07:15 MCV 81.7 fL (81.0-99.0) 12/20/17 07:15 MCH 27.7 pg (27.0-31.0) 12/20/17 07:15 MCHC 34.0 g/dL (33.0-37.0) 12/20/17 07:15 RDW 14.7 % (11.5-14.5) H 12/20/17 07:15 Plt Count 347 K/uL (130-400) 12/20/17 07:15 MPV 7.5 fL (7.2-11.7) 12/20/17 07:15 Neut % (Auto) 56.1 % (50.0-75.0) 12/20/17 07:15 Lymph % (Auto) 32.6 % (20.0-40.0) 12/20/17 07:15 [place] % (Auto) 10.5 % (0.0-10.0) H 12/20/17 07:15 Eos % (Auto) 0.5 % (0.0-4.0) 12/20/17 07:15 Baso % (Auto) 0.3 % (0.0-2.0) 12/20/17 07:15 Neut # (Auto) 3.0 K/uL (1.8-7.0) 12/20/17 07:15 Lymph # (Auto) 1.7 K/uL (1.0-4.3) 12/20/17 07:15 [place] # (Auto) 0.6 K/uL (0.0-0.8) 12/20/17 07:15 Eos # (Auto) 0.0 K/uL (0.0-0.7) 12/20/17 07:15 Baso # (Auto) 0.0 K/uL (0.0-0.2) 12/20/17 07:15 Neutrophils % (Manual) 84 % (50-75) H 12/18/17 14:06 Lymphocytes % (Manual) 9 % (20-40) L 12/18/17 14:06 Monocytes % (Manual) 6 % (0-10) 12/18/17 14:06 Eosinophils % (Manual) 1 % (0-4) 12/18/17 14:06 Platelet Estimate Normal (NORMAL) 12/18/17 14:06 Polychromasia Slight 12/18/17 14:06 Hypochromasia (manual) Slight 12/18/17 14:06 Poikilocytosis (manual Slight 12/18/17 14:06 Anisocytosis (manual) Slight 12/18/17 14:06 Ovalocytes Slight 12/18/17 14:06 Schistocytes Slight 12/18/17 14:06 PT 12.0 SECONDS (9.7-12.2) 12/19/17 06:16 INR 1.1 12/19/17 06:16 APTT 25 SECONDS (21-34) 12/19/17 06:16 Sodium 138 mmol/L (132-148) 12/20/17 07:15 Potassium 3.4 mmol/L (3.6-5.2) L 12/20/17 07:15 Chloride 103 mmol/L (98-107) 12/20/17 07:15 Carbon Dioxide 27 mmol/L (22-30) 12/20/17 07:15 Anion Gap 11 (10-20) 12/20/17 07:15 BUN 6 mg/dL (7-17) L 12/20/17 07:15 Creatinine 0.7 mg/dL (0.7-1.2) 12/20/17 07:15 Est GFR ( Amer) > 60 12/20/17 07:15 Est GFR (Non-Af Amer) > 60 12/20/17 07:15 Random Glucose 94 mg/dL (65-105) 12/20/17 07:15 Calcium 8.2 mg/dl (8.6-10.4) L 12/20/17 07:15 Total Bilirubin 0.5 mg/dL (0.2-1.3) 12/18/17 14:06 AST 29 U/L (14-36) 12/18/17 14:06 ALT 14 U/L (9-52) 12/18/17 14:06 Alkaline Phosphatase 69 U/L (38-126) 12/18/17 14:06 Total Protein 7.4 g/dL (6.3-8.3) 12/18/17 14:06 Albumin 4.0 g/dL (3.5-5.0) 12/18/17 14:06 Globulin 3.4 gm/dL (2.2-3.9) 12/18/17 14:06 Albumin/Globulin Ratio 1.2 (1.0-2.1) 12/18/17 14:06 Urine Color Straw (YELLOW) 12/18/17 16:42 Urine Clarity Clear (Clear) 12/18/17 16:42 Urine pH 7.0 (5.0-8.0) 12/18/17 16:42 Ur Specific [place] 1.014 (1.003-1.030) 12/18/17 16:42 Urine Protein Negative mg/dL (NEGATIVE) 12/18/17 16:42 Urine Glucose (UA) Normal mg/dL (Normal) 12/18/17 16:42 Urine Ketones 1+ mg/dL (NEGATIVE) H 12/18/17 16:42 Urine Blood 1+ (NEGATIVE) H 12/18/17 16:42 Urine Nitrate Negative (NEGATIVE) 12/18/17 16:42 Urine Bilirubin Negative (NEGATIVE) 12/18/17 16:42 Urine Urobilinogen Normal mg/dL (0.2-1.0) 12/18/17 16:42 Ur Leukocyte Esterase Negative [place]/uL (Negative) 12/18/17 16:42 Urine WBC (Auto) 1 /hpf (0-5) 12/18/17 16:42 Urine RBC (Auto) 3 /hpf (0-3) 12/18/17 16:42 Ur Squamous Epith Cells 5 /hpf (0-5) 12/18/17 16:42 Urine Bacteria Occ (<OCC) H 12/18/17 16:42 Urine HCG, Qual Negative (NEGATIVE) 12/19/17 04:53 - Hospital Course Hospital Course: A/P 42 y/o female ADMITTED with left flank and left lower quadrant abdominal pain /renal calculi s/p cysto, L uretroscopy, L rtg pyelogram.and insertion of L ureteral stent seen by Dr. Horne cleared fro discharge home today and f/u with [facility] and Dr. Horne office cleared fro discharge home today Discharge plan discussed with patient, who understands and agrees with plan RX sent to [facility] pharmacy Discharge Exam - Head Exam Head Exam: NORMAL INSPECTION - Eye Exam Eye Exam: EOMI, Normal appearance, PERRL Pupil Exam: NORMAL ACCOMODATION, PERRL - Respiratory Exam Respiratory Exam: Decreased Breath Sounds, Rales - Cardiovascular Exam Cardiovascular Exam: +S1, +S2 - GI/Abdominal Exam GI & Abdominal Exam: Normal Bowel Sounds - Rectal Exam Rectal Exam: Deferred Discharge Plan - Discharge Medications Prescriptions: Ciprofloxacin HCl [Cipro] 500 mg PO BID #17 tablet Oxybutynin XL [Ditropan XL] 15 mg PO DAILY #14 ter Tamsulosin [Flomax] 0.4 mg PO DAILY #30 cap - Follow Up Plan Condition: STABLE Disposition: HOME/ ROUTINE Instructions: Ciprofloxacin (Systemic), Oxybutynin, Tamsulosin, Cystoscopy (DC) , Ureteral Stent (DC), Renal Colic (DC) Additional Instructions: Please f/u with Dr. Horne office - call and make appointment Please f/u with stone center- call and make appointment Please f/u with Dr. Warren office /Dr. Magallanes office in 1 week continue medication as per med. rec. 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
--- NOTE | 2017-12-20 22:27 | PCM.URO ---
Urology Progress Note - General General: Tolerating Diet - Subjective Abdominal Pain: No Flank Pain: Yes (L flank pain w voiding) Voiding Well: Yes Hematuria: Yes (resolved) [place]: Yes Stone Passed: No Chest Pain: No Fever & Chills: No - Objective Lab Results Last 24 Hours: Laboratory Results - last 24 hr 12/20/17 12/20/17 07:15 07:15 WBC 5.4 RBC 3.57 L Hgb 9.9 L Hct 29.1 L MCV 81.7 MCH 27.7 MCHC 34.0 RDW 14.7 H Plt Count 347 MPV 7.5 Neut % (Auto) 56.1 Lymph % (Auto) 32.6 [place] % (Auto) 10.5 H Eos % (Auto) 0.5 Baso % (Auto) 0.3 Neut # (Auto) 3.0 Lymph # (Auto) 1.7 [place] # (Auto) 0.6 Eos # (Auto) 0.0 Baso # (Auto) 0.0 Sodium 138 Potassium 3.4 L Chloride 103 Carbon Dioxide 27 Anion Gap 11 BUN 6 L Creatinine 0.7 Est GFR ( Amer) > 60 Est GFR (Non-Af Amer) > 60 Random Glucose 94 Calcium 8.2 L Intake & Output: Intake & Output 12/20/17 12/20/17 12/21/17 06:59 18:59 06:59 Intake Total 450 Output Total 700 Balance -700 450 Intake: Intake, IV Amount 100 Left Antecubital 100 Oral 350 Output: Urine 700 Urine, Voided 700 Other: # Voids Urine, Voided 1 3 # Bowel Movements 0 Vital Signs: Vital Signs - 24 hr 12/19/17 12/20/17 12/20/17 23:35 04:36 07:30 Temperature 99.0 F 98.0 F 98.3 F Pulse Rate 94 H 96 H 85 Respiratory 20 20 20 Rate Blood Pressure 102/65 106/71 120/75 O2 Sat by Pulse 94 L 94 L 94 L Oximetry - Physical Exam Abdominal Exam: Soft, Non-Tender, Non-Distended Back: No CVA Tenderness - Plan Additional Information: Imp: stable p cysto, stent insertion. L mid ureteral calculus. P: Abd xray. antibiotic rx. further rx t/f. Discussed w pt and husbnd. Will discuss with attending MD - Date & Time of Note Date: 12/20/17 Time: 09:50
--- NOTE | 2017-12-21 17:57 | CON ---
DATE: 12/19/2017 UROLOGY CONSULTATION Urology consultation requested by Salas Magallanes MD. Urology consultation filled by Sanam Horne MD. REASON FOR CONSULTATION: Left renal colic. HISTORY OF PRESENT ILLNESS: The patient is a 42-year-old female with left flank pain. The patient developed left flank pain approximately 2 days ago. The patient presented to the emergency room. She was found to have an obstructing left ureteral stone. The patient was subsequently discharged. However, she returned yesterday with increased pain. There was associated nausea. No vomiting. No hematuria. No fever. Pain has been severe. The patient has required parenteral analgesics. Pain has persisted through this morning. Mrs. Akhtar is otherwise well. No history of previous urolithiasis. No urinary tract infection. No history of hypertension, diabetes, pneumonia, asthma, tuberculosis. No blackouts, seizures, or strokes. 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 The patient lives with her and children. The patient does not smoke. PHYSICAL EXAMINATION: GENERAL: The patient is a well-developed, well-nourished, middle-aged female, appearing her stated age. The patient is awake and alert. ABDOMEN: Soft. Mildly distended. There is no abdominal tenderness. BACK: There is marked left CVA tenderness. LABORATORY DATA: Reviewed. CAT scan is reviewed as well. She had a CT scan. CT scan was reviewed. There is approximately a 4 to 5 mm calculus at the level of the lumbar ureter, approximately L4 level. There is noted to be moderate hydronephrosis down to the stone as well. IMPRESSION: 1. Left renal colic. 2. Left ureteral calculus. 3. Persistent pain. RECOMMENDATIONS AND PLAN: The patient is advised regarding options of therapy. In view of the persistent pain, she prefers intervention. For cystoscopy and stent insertion. Possible ureteroscopy and laser ureteral lithotripsy. Further therapy to follow according to the patient's clinical course. Thank you for recommending the patient for Urology consultation. Sanam Horne MD cc: Salas Magallanes MD
--- NOTE | 2017-12-21 18:11 | OP ---
PROCEDURE DATE: 12/19/2017 PREOPERATIVE DIAGNOSES: 1. Left renal colic. 2. Left mid ureteral calculus. POSTOPERATIVE DIAGNOSES: 1. Left renal colic. 2. Left mid ureteral calculus. PROCEDURES: 1. Cystoscopy. 2. Left ureteroscopy. 3. Left retrograde pyelogram. 4. Insertion of left ureteral stent. OPERATING SURGEON: Sanam Horne MD DESCRIPTION OF PROCEDURE: The patient was in the supine position. Keyboard Teacher fluoroscopy of the abdomen revealed a probable calcification overlying the area of the lumbar ureter. The patient was placed in lithotomy position. The patient received perioperative antibiotics. The genitalia were prepped and draped sterilely. Anesthesia was provided by the anesthesiologist. A 22-Cameroonian cystoscope sheath was introduced under direct vision per urethra. Urethra and bladder were inspected with 30-degree lens. FINDINGS: There was no bladder tumor. There was no bladder stone. The ureteral orifices were normal in position and shape. The bladder mucosa was normal. A 0.035-inch guidewire was inserted into the ureteral orifice. The guidewire was passed into the ureter under fluoroscopic control. The guidewire passed up to the level of the kidney. A second guidewire was inserted. The 7-Cameroonian mini rigid ureteroscope was advanced into the ureter under direct endoscopic control. The distal ureter was able to be easily entered. However, the ureteroscope could not be advanced more proximally due to tightness of the ureter. The ureteroscope was then removed. Iodinated contrast dye was instilled via an open-ended catheter over the secondary . There was noted to be moderate hydronephrosis. The open-ended catheter and the secondary ureteral guidewire were removed. A 6-Cameroonian stent was inserted over the remaining guidewire. Proper stent position was confirmed with fluoroscopy and endoscopy. The stent was left in place. The guidewire was removed. The bladder was reinspected and confirmed the above findings. The bladder was then drained. Cystoscope sheath removed. Exam under anesthesia was performed. There was no adnexal mass. There was mild uterine enlargement, which was mobile without fixation, induration, or nodularity. The patient was returned to supine position. The patient tolerated the procedure without complication. Woden MD Coleen cc: Salas Magallanes MD
--- NOTE | 2017-12-21 23:33 | CARD ---
APPROVED REPORT EKG Measurement Heart [id number] ME [id number] <Conclusion> Normal sinus rhythm Normal ECG
== END 2017-12-20 14:58 | disposition home or self-care (01) | DRG 694 ==
LOC: C.ER 13:47 → C.9E 14:48 → C.6T 16:13
PROVIDERS: ADMIT Internal Medicine; ATTEND Internal Medicine
PROC: BT1F1ZZ Fluoroscopy of Left Kidney, Ureter and Bladder using Low Osmolar Contrast (ICD-10-PCS; 2017-12-19)
PROC: 0T778DZ Dilation of Left Ureter with Intraluminal Device, Via Natural or Artificial Opening Endoscopic (ICD-10-PCS; principal; 2017-12-19 11:00)
DX: N13.2 Hydronephrosis with renal and ureteral calculous obstruction (principal); M54.30 Sciatica, unspecified side; N85.2 Hypertrophy of uterus; Z87.440 Personal history of urinary (tract) infections; Z87.442 Personal history of urinary calculi

== ENCOUNTER 2017-12-26 07:13 | Day surgery (SDC) | payer OTHER ==
[2017-12-26 07:13] VITALS: BMI 26.6
[2017-12-26 07:40] LABS: EOS # 0.1 K/uL (0.0-0.7); EOS % 2.6 % (0.0-4.0); HEMOGLOBIN 10.4 g/dL (11.0-16.0); LYMPH % 54.6 % (20.0-40.0); MEAN CELL VOLUME 81.9 fL (81.0-99.0); MEAN CORPUSCULAR HEMOGLOBIN 27.7 pg (27.0-31.0); MEAN CORPUSCULAR HGB CONC 33.8 g/dL (33.0-37.0); MEAN PLATELET VOLUME 7.3 fL (7.2-11.7); MONO # 0.3 K/uL (0.0-0.8); MONO % 8.5 % (0.0-10.0); NEUT # 1.2 K/uL (1.8-7.0); NEUT % 33.3 % (50.0-75.0); NRBC % 0.1 % (0.0-2.0); RBC 3.75 Mil/uL (3.80-5.20); RED CELL DISTRIBUTION WIDTH 14.4 % (11.5-14.5); WHITE BLOOD COUNT 3.6 K/uL (4.8-10.8)
[2017-12-26 07:57] LABS: PROTHROMBIN TIME 10.7 SECONDS (9.7-12.2)
[2017-12-26 08:08] LABS: ALB/GLOB RATIO 1.1 (1.0-2.1); ALBUMIN 3.7 g/dL (3.5-5.0); ALT/SGPT 23 U/L (9-52); AST/SGOT 34 U/L (14-36); BLOOD UREA NITROGEN 10 mg/dL (7-17); CALCIUM 8.6 mg/dl (8.6-10.4); GFR AFRICAN-AMERICAN > 60; GFR NON-AFRICAN AMERICAN > 60
--- NOTE | 2017-12-26 09:49 | C.PDOC ---
History Of Present Illness 42 y/o female presents to the ER for removal of a left kidney stent placed by Dr. Sanam Horne. Patient states that she has mild pain in the left flank.Patient denies having nausea, vomiting, and other complaints. Chief Complaint (Nursing): Back Pain History Per: Patient History/Exam Limitations: no limitations Onset/Duration Of Symptoms: Hrs Current Symptoms Are (Timing): Still Present Severity: Mild Past Medical History Reviewed: Historical Data, Nursing Documentation, Vital Signs Vital Signs: Last Vital Signs Temp 97.8 F 12/26/17 13:42 Pulse 63 12/26/17 13:42 Resp 16 12/26/17 13:42 BP 103/54 L 12/26/17 13:42 Pulse Ox 99 12/26/17 13:42 - Medical History PMH: Anemia, Bronchitis, Gall Bladder Disease, Kidney Stones (LT STENT), Chronic Kidney Disease Surgical History: Appendectomy (in 1990), Cholecystectomy, Tonsillectomy, C- Section - [facility] Procedures DILATION OF LEFT URETER WITH INTRALUMINAL DEVICE, ENDO (12/18/17) FLUOROSCOPY KIDNEY, URETER, BLADDER, L W L OSM CONTRAST (12/18/17) LOW CERVICAL (04/01/14) Family History: States: No Known Family Hx - Social History Hx Tobacco Use: No Hx Alcohol Use: No Hx Substance Use: No - Immunization History Hx Tetanus Toxoid Vaccination: Yes Hx Influenza Vaccination: Yes Hx Pneumococcal Vaccination: Yes Review Of Systems Except As Marked, All Systems Reviewed And Found Negative. Constitutional: Negative for: Fever, Chills Musculoskeletal: Positive for: Other (left flank pain) Physical Exam - Physical Exam Appears: Non-toxic, No Acute Distress Skin: Normal Color, Warm Head: Atraumatic, Normacephalic Eye(s): bilateral: Normal Inspection Nose: Normal Oral Mucosa: Moist Neck: Supple Chest: Symmetrical Cardiovascular: Rhythm Regular Respiratory: Normal Breath Sounds, No Rales, No Rhonchi, No Wheezing Gastrointestinal/Abdominal: Soft, No Tenderness Back: No CVA Tenderness Neurological/Psych: Oriented x3, Normal Speech ED Course And Treatment - Laboratory Results Result Diagrams: 12/26/17 07:37 12/26/17 07:37 ECG: Interpreted By Me, Viewed By Me ECG Rhythm: Sinus Rhythm ECG Interpretation: Normal Rate From EC O2 Sat by Pulse Oximetry: 97 (RA) Pulse Ox Interpretation: Normal Progress Note: Labs, ECG, and POC Urine test ordered and reviewed. Patient will be admitted. Disposition - Disposition Disposition: HOSPITALIZED Disposition Time: 08:00 Condition: STABLE - Clinical Impression Clinical Impression: Kidney stone, Calcium nephrolithiasis - Scribe Statement The provider has reviewed the documentation as recorded by the Scribe Karlo Landa Provider Attestation: All medical record entries made by the Scribe were at my direction and personally dictated by me. I have reviewed the chart and agree that the record accurately reflects my personal performance of the history, physical exam, medical decision making, and the department course for this patient. I have also personally directed, reviewed, and agree with the discharge instructions and disposition.
[2017-12-26] MEDS ORDERED: Lidocaine 2% Jelly (Uro-Jet) ONE (10:19)
[2017-12-26] MEDS ORDERED: Iohexol 240 (50 ml) ONE (10:19)
[2017-12-26] MEDS ORDERED: cefTRIAXone 1 gm 1 GM/100 ML BAG IVPB ONE (10:19)
[2017-12-26] MEDS ORDERED: Midazolam 2 MG/2 ML VIAL ONE (10:40)
[2017-12-26] MEDS ORDERED: Propofol 10 mg/ml Inj (20 ML) ONE (10:40)
[2017-12-26] MEDS ORDERED: Gentamicin 160 MG in Sodium Chloride 0.9% 100 ML IVPB ONE (11:01)
[2017-12-26] MEDS ORDERED: Lactated Ringer's 1,000 ML IV SCH (11:45)
--- NOTE | 2017-12-26 11:50 | PCM.SURG1 ---
Surgeon's Initial Post Op Note - Surgeon's Notes Surgeon: Yudelka Horne Digital Media Strategist: none Type of Anesthesia: General LMA Pre-Operative Diagnosis: L uretral calculus Operative Findings: L renal calculus Post-Operative Diagnosis: same Operation Performed: cysto, L uretroscopy. L ureterorenoscopy. Stone basketing. rtg pyelogram. stent insertion Specimen/Specimens Removed: urine. stone Estimated Blood Loss: EBL {In ML}: 0 Blood Products Given: N/A Post-Op Condition: Good Date of Surgery/Procedure: 12/26/17 Time of Surgery/Procedure: 11:35
[2017-12-26] MEDS ORDERED: HYDROmorphone 0.5 mg/0.5 ml ISec IVP PRN (12:14)
[2017-12-26 14:00] VITALS: RESP 16
[2017-12-26 14:15] VITALS: BP 103/54; PULSE 63; TEMP 97.8
--- NOTE | 2017-12-26 14:15 | RAD ---
HISTORY: Left ureteral stone COMPARISON: Comparison made with prior study dated 12/20/2017 FINDINGS: In situ left ureteral stent again noted. . . There appears to be a small 3.9 x 2.7 mm calcification adjacent - abutting the left lateral margin of the proximal left ureteral stent just caudal to the left L3 transverse process. This could represent a residual left ureteral calculus. Several small calcifications overlying the true pelvis likely represent calcified pelvic phleboliths however tiny bladder calculi not excluded BOWEL: No evidence acute mechanical bowel obstruction. Moderately large amount of stool seen throughout the colon consistent with mild fecal retention/ constipation. BONES: Normal. OTHER FINDINGS: None. IMPRESSION: Re- demonstrated is an in situ left ureteral stent. There appears to be a small 3.9 mm x 2.7 mm calcification adjacent - abutting the left lateral margin of the proximal left ureteral stent just caudal to the left L3 transverse process. This could represent a residual left ureteral calculus. Several small calcifications overlying the true pelvis likely represent calcified pelvic phleboliths however tiny bladder calculi not excluded
[2017-12-26 17:48] VITALS: O2SAT 97
--- NOTE | 2017-12-27 03:05 | OP ---
PROCEDURE DATE: 12/26/2017 UROLOGY OPERATIVE REPORT PREOPERATIVE DIAGNOSIS: Left ureteral calculus. POSTOPERATIVE DIAGNOSIS: Left renal calculus. PROCEDURES: Cystoscopy. Left ureteroscopy. Left renoscopy. Left renal stone basketing. Left retrograde pyelogram. Insertion of left ureteral stent. SURGEON: Sanam Horne MD Procedures were performed under fluoroscopic control as well as videoendoscopic control. DESCRIPTION OF PROCEDURE: As follows; the patient received perioperative antibiotics. The patient received general anesthesia via laryngeal mask airway. Controls Operator Molded Goods film of the abdomen in PA and oblique views were obtained. The left ureteral stent was noted to be in proper position. There was noted to be a small stone approximately 3-4 mm adjacent to the left ureteral stent, at approximately the L3 vertebral level. This was a faint radiodensity. In addition, there were some calcifications within the pelvis not along the course of the stent. Genitalia prepped and draped sterilely. A 22-Eritrean cystoscope sheath was introduced with obturator. Urine from the bladder was sent for bacteriologic examination. The bladder was inspected. The left ureteral stent was identified. The stent was grasped with rigid grasping forceps and delivered along with cystoscope sheath to the urethral meatus. A 0.035-inch guidewire was inserted into ureteral stent. The stent was removed. The 7-Eritrean rigid ureteroscope was introduced per urethra. A second guide was introduced into the ureteral orifice under ureteroscopic control. The ureteroscope was then advanced in atraumatic fashion into the ureter. Ureteroscopy was performed. There was no stone identified within the ureter. The ureteroscope was passed up to level of kidney and no stone was seen. The ureteroscope was removed under direct vision. Again, no stone was identified. A guidewire was left in place. The 7-Eritrean flexible ureterorenoscope was introduced over the working wire. The ureter and kidney were then inspected under videoendoscopic control and with fluoroscopic guidance. The stone was identified in the mid nimco. This stone was approximately 3 mm in size and was somehow lobulated. The stone was engaged in a Nitinol Tipless 2.4-Eritrean stone basket. The stone and basket and ureteroscope were removed intact together in an atraumatic fashion under ureteroscopic control. Repeat ureteroscopy and renoscopy were performed. There were no mucosal lesions or trauma in the ureter. Iodinated contrast dye was instilled into the kidney. Each nimco was further inspected under both fluoroscopic and endoscopic control. There were no residual stones. The ureteroscope was again removed under direct vision. A 4.8-Eritrean 24-cm ureteral double-J catheter was inserted over the remaining guidewire. Proper stent position was confirmed with fluoroscopy and endoscopy. A distal suture was left to exit from the stent per urethra. The bladder was reinspected and confirmed the above findings. The bladder was drained. Cystoscope and sheath were removed. The suture was left within the vagina, after its exit per urethra. The patient was returned to supine position. The patient tolerated the procedure without complication. Sanam Horne MD DWAIN
--- NOTE | 2017-12-27 11:32 | CARD ---
APPROVED REPORT EKG Measurement Heart [id number] <Conclusion> Normal sinus rhythm with sinus arrhythmia Normal ECG
--- NOTE | 2017-12-27 13:01 | RAD ---
PROCEDURE: Fluoroscopy up to 1 hr. HISTORY: LEFT URETERAL STONE COMPARISON: None TECHNIQUE: Total fluoroscopic time (continuous mode) utilized during the procedure 110 seconds. Total exam DLP: (mGy) 1.61 FINDINGS: Submitted images from the current procedure: Greater than 10. IMPRESSION: Less than 1 hr fluoroscopic time utilized during performance of the procedure.
== END 2017-12-26 14:12 | disposition home or self-care (01) ==
LOC: C.ER 07:13 → C.SDS 08:09
PROVIDERS: ATTEND Urology
DX: N20.2 Calculus of kidney with calculus of ureter (principal)
CPT/HCPCS: 52332; 52352; 74022; 80053; 82365; 85025; 85610; 85730; 87086; 88300; 93005; 99285; C1758; C1769; C2625; J0696; J1170; J1580; Q9966

== ENCOUNTER 2018-08-15 12:25 | Emergency (ER) | payer BC, OTHER ==
[2018-08-15 12:25] VITALS: BMI 26.6
[2018-08-15 12:44] VITALS: RESP 18; TEMP 98.1; O2SAT 98
[2018-08-15] MEDS ORDERED: Sodium Chloride 0.9% 1,000 ML IV ONE ×2 (13:05→13:13)
[2018-08-15 13:48] LABS: BASO % 0.8 % (0.0-2.0); EOS # 0.1 K/uL (0.0-0.7); EOS % 2.2 % (0.0-4.0); HEMOGLOBIN 11.2 g/dL (11.0-16.0); LYMPH # 1.9 K/uL (1.0-4.3); MEAN CELL VOLUME 82.6 fL (81.0-99.0); MEAN CORPUSCULAR HEMOGLOBIN 27.5 pg (27.0-31.0); MEAN CORPUSCULAR HGB CONC 33.3 g/dL (33.0-37.0); MEAN PLATELET VOLUME 7.2 fL (7.2-11.7); MONO # 0.4 K/uL (0.0-0.8); MONO % 8.7 % (0.0-10.0); NEUT # 2.4 K/uL (1.8-7.0); NEUT % 49.3 % (50.0-75.0); NRBC % 0.1 % (0.0-2.0); RBC 4.05 Mil/uL (3.80-5.20); RED CELL DISTRIBUTION WIDTH 15.4 % (11.5-14.5); WHITE BLOOD COUNT 4.8 K/uL (4.8-10.8)
[2018-08-15 13:54] LABS: HCG,QUALITATIVE URINE NEGATIVE (NEGATIVE)
[2018-08-15 13:57] LABS: SQUAMOUS EPITHIAL 5 /hpf (0-5); URINE BILIRUBIN NEGATIVE (NEGATIVE); URINE BLOOD 1+ (NEGATIVE); URINE CLARITY Clear (Clear); URINE COLOR Yellow (YELLOW); URINE GLUCOSE (UA) NORMAL (Normal); URINE LEUKOCYTE ESTERASE NEG Leu/uL (Negative); URINE PROTEIN NEGATIVE (NEGATIVE); URINE UROBILINOGEN NORMAL mg/dL (0.2-1.0)
[2018-08-15 13:59] LABS: ALB/GLOB RATIO 1.2 (1.0-2.1); ALBUMIN 3.7 g/dL (3.5-5.0); ALT/SGPT 16 U/L (9-52); AST/SGOT 23 U/L (14-36); BLOOD UREA NITROGEN 6 mg/dL (7-17); GFR NON-AFRICAN AMERICAN > 60
--- NOTE | 2018-08-15 14:15 | C.PDOC ---
History Of Present Illness 43 y/o female, [employer] employee, presents to the ER complaining of vertigo like dizziness which has been present for the past 4 days. Patient states that she has mild viral syndrome symptoms today. Patient reports that she has sick contacts at work and home. Denies having fever, chills, nausea, vomiting, and abdominal pain. Time Seen by Provider: 08/15/18 13:04 Chief Complaint (Nursing): Dizziness/Lightheaded History Per: Patient History/Exam Limitations: no limitations Onset/Duration Of Symptoms: Days Current Symptoms Are (Timing): Still Present Severity: Moderate Past Medical History Reviewed: Historical Data, Nursing Documentation, Vital Signs Vital Signs: Last Vital Signs Temp 98.1 F 08/15/18 12:38 Pulse 87 08/15/18 12:38 Resp 18 08/15/18 12:38 BP 108/70 08/15/18 12:38 Pulse Ox 98 08/15/18 12:38 - Medical History PMH: Anemia, Bronchitis, Gall Bladder Disease, Kidney Stones (LT STENT), Chronic Kidney Disease Surgical History: Appendectomy (in 1990), Cholecystectomy, Tonsillectomy, C- Section - [facility] Procedures DILATION OF LEFT URETER WITH INTRALUMINAL DEVICE, ENDO (12/18/17) FLUOROSCOPY KIDNEY, URETER, BLADDER, L W L OSM CONTRAST (12/18/17) LOW CERVICAL (04/01/14) Family History: States: No Known Family Hx - Social History Hx Tobacco Use: No Hx Alcohol Use: No Hx Substance Use: No - Immunization History Hx Tetanus Toxoid Vaccination: No Hx Influenza Vaccination: Yes Hx Pneumococcal Vaccination: No Review Of Systems Except As Marked, All Systems Reviewed And Found Negative. Constitutional: Negative for: Fever, Chills Cardiovascular: Negative for: Chest Pain Respiratory: Negative for: Shortness of Breath Gastrointestinal: Negative for: Nausea, Vomiting Neurological: Positive for: Dizziness. Negative for: Headache Physical Exam - Physical Exam Appears: No Acute Distress Skin: Normal Color, Warm, Dry Head: Atraumatic, Normacephalic Eye(s): bilateral: Normal Inspection Ear(s): Bilateral: Normal Nose: Other (moderate to severe eythema to bilateral nasal passages) Oral Mucosa: Moist Throat: Normal, No Erythema, No Exudate Neck: Supple Chest: Symmetrical Cardiovascular: Rhythm Regular Respiratory: Normal Breath Sounds, No Rales, No Rhonchi, No Wheezing Neurological/Psych: Oriented x3, Normal Speech ED Course And Treatment - Laboratory Results Result Diagrams: 08/15/18 13:39 08/15/18 13:21 Lab Interpretation: Normal (ua neg.) Urine POC: Negative ECG: Interpreted By Me ECG Rhythm: Sinus Rhythm ECG Interpretation: Normal Rate From EC O2 Sat by Pulse Oximetry: 98 (RA) Pulse Ox Interpretation: Normal Progress Note: IVF, lunch, feels better Reevaluation Time: 14:14 Reassessment Condition: Improved Medical Decision Making Medical Decision Making: sinus headache/congestion seasonal now high volume Decongestants, meclizine Disposition Doctor Will See Patient In The: Office Counseled Patient/Family Regarding: Studies Performed, Diagnosis - Disposition Referrals: Cristiano Art MD [Staff Provider] - Disposition: HOME/ ROUTINE Disposition Time: 14:15 Condition: GOOD Additional Instructions: pseudafed 30-60 mg every 6 hours as needed for nasal congestion Meclizine/Antivert 25 mg every 8 hours as needed for dizziness Motrin/Advil/Ibuprofen 400-600 mg every 6 hours for headache and middle-ear inflammation/headaches follow-up with your PMD as needed. labs/urinalysis and tests NEGATIVE today. Prescriptions: Meclizine [Meclizine*] 25 mg PO Q6 PRN #15 tab PRN Reason: vertigo Instructions: Vertigo (a Type of Dizziness), Loratadine and Pseudoephedrine Forms: [facility] (Italian) - Clinical Impression Clinical Impression: Vertigo - Scribe Statement The provider has reviewed the documentation as recorded by the Jodiibe Karlo Landa Provider Attestation: All medical record entries made by the Scribe were at my direction and personally dictated by me. I have reviewed the chart and agree that the record accurately reflects my personal performance of the history, physical exam, medical decision making, and the department course for this patient. I have also personally directed, reviewed, and agree with the discharge instructions and disposition.
[2018-08-15 16:25] VITALS: BP 116/57; PULSE 68
--- NOTE | 2018-08-17 07:35 | CARD ---
APPROVED REPORT Date of service: 08/15/2018 EKG Measurement Heart [id number] <Conclusion> Normal sinus rhythm Low voltage QRS Abnormal ECG
== END 2018-08-15 15:40 | disposition home or self-care (01) ==
LOC: C.ER 12:25
DX: R42 Dizziness and giddiness (principal)
CPT/HCPCS: 80053; 81001; 84703; 85025; 93005; 96360; 99285; J7030

== ENCOUNTER 2018-09-15 08:20 | Emergency (ER) | payer BC ==
[2018-09-15 08:20] VITALS: BMI 26.6
[2018-09-15 08:40] VITALS: RESP 16
[2018-09-15 10:23] VITALS: BP 107/68; PULSE 79; TEMP 97.8; O2SAT 99
--- NOTE | 2018-09-15 10:42 | C.PDOC ---
History Of Present Illness 43 years old female presents to ED for complaints of vaginal discharge. Patient states prior yeast infection in the past after taking Biotin, and states that last night she took Biotin again by mistake and believes she developed a yeast infection again. Patient refuses to have pelvic exam done in ER. Patient also states applying cream last night but does not like how it feels and she requests diflucan instead. Time Seen by Provider: 09/15/18 08:58 Chief Complaint (Nursing): Female Genitourinary History Per: Patient History/Exam Limitations: no limitations Onset/Duration Of Symptoms: Hrs Current Symptoms Are (Timing): Still Present Associated Symptoms: denies: Fever, Chills, Nausea, Vomiting Recent travel outside of the [place]: No Abnormal Vaginal Bleeding: No Past Medical History Reviewed: Historical Data, Nursing Documentation, Vital Signs Vital Signs: Last Vital Signs Temp 97.8 F 09/15/18 10:23 Pulse 79 09/15/18 10:23 Resp 16 09/15/18 10:23 BP 107/68 09/15/18 10:23 Pulse Ox 99 09/15/18 10:23 - Medical History PMH: Anemia, Bronchitis, Gall Bladder Disease, Kidney Stones (LT STENT), Chronic Kidney Disease Surgical History: Appendectomy (in 1990), Cholecystectomy, Tonsillectomy, C- Section - [facility] Procedures DILATION OF LEFT URETER WITH INTRALUMINAL DEVICE, ENDO (12/18/17) FLUOROSCOPY KIDNEY, URETER, BLADDER, L W L OSM CONTRAST (12/18/17) LOW CERVICAL (04/01/14) Family History: States: Unknown Family Hx - Social History Hx Tobacco Use: No Hx Alcohol Use: No Hx Substance Use: No - Immunization History Hx Tetanus Toxoid Vaccination: No Hx Influenza Vaccination: Yes (06/2018) Hx Pneumococcal Vaccination: No Review Of Systems Constitutional: Negative for: Fever, Chills Gastrointestinal: Negative for: Nausea, Vomiting, Abdominal Pain, Diarrhea Genitourinary: Positive for: Vaginal Discharge. Negative for: Vaginal Bleeding Skin: Negative for: Rash Neurological: Negative for: Weakness, Numbness Physical Exam - Physical Exam Appears: Well, Non-toxic, No Acute Distress Skin: Normal Color, Warm, Dry, No Rash Head: Atraumatic, Normacephalic Eye(s): bilateral: Normal Inspection, PERRL, EOMI Oral Mucosa: Moist Neck: Normal ROM, Supple Chest: Symmetrical, No Tenderness Cardiovascular: Rhythm Regular Respiratory: Normal Breath Sounds, No Rales, No Rhonchi, No Wheezing Gastrointestinal/Abdominal: Soft, No Tenderness Extremity: Normal ROM Extremity: Bilateral: Atraumatic, Normal Color And Temperature, Normal ROM Pulses: Left Radial: Normal, Right Radial: Normal Neurological/Psych: Oriented x3, Normal Speech Gait: Steady ED Course And Treatment O2 Sat by Pulse Oximetry: 99 (RA) Pulse Ox Interpretation: Normal Progress Note: Administered Diflucan. Disposition - Disposition Disposition: HOME/ ROUTINE Disposition Time: 10:40 Condition: STABLE Additional Instructions: Follow up with your OBGYN [id number] 1-2 days. Return to ED if feel worse. Prescriptions: Fluconazole [Diflucan] 150 mg PO ONCE #1 tab Instructions: Vulvovaginal Yeast Infection Forms: [facility] (Georgian) - Clinical Impression Clinical Impression: Vaginitis - PA / PROCESS CONTROL BOARD OPERATOR / Resident Statement MD/DO has reviewed & agrees with the documentation as recorded. - Scribe Statement The provider has reviewed the documentation as recorded by the Scribloyd Chavez All medical record entries made by the Jodiibloyd were at my direction and personally dictated by me. I have reviewed the chart and agree that the record accurately reflects my personal performance of the history, physical exam, medical decision making, and the department course for this patient. I have also personally directed, reviewed, and agree with the discharge instructions and disposition.
== END 2018-09-15 10:53 | disposition home or self-care (01) ==
LOC: C.ER 08:20
DX: N76.0 Acute vaginitis (principal)

== ENCOUNTER 2018-11-06 23:06 | Emergency (ER) | payer OTHER ==
[2018-11-06 23:06] VITALS: BMI 26.6
[2018-11-06 23:22] VITALS: RESP 20
[2018-11-07] MEDS ORDERED: Sodium Chloride 0.9% 1,000 ML IV ONE (00:30)
--- NOTE | 2018-11-07 00:30 | C.PDOC ---
History Of Present Illness 43 year old female presents to the ED c/o dizziness while at work, feeling lightheaded. Patient reports that since noon she started having heavy periods. Patient currently taking iron. Patient denies fever, chills, visual changes, CP, SOB, headache, palpitations, weakness, numbness. Time Seen by Provider: 11/07/18 00:01 Chief Complaint (Nursing): Dizziness/Lightheaded History Per: Patient History/Exam Limitations: no limitations Onset/Duration Of Symptoms: Hrs Current Symptoms Are (Timing): Still Present Activity At Onset Of Symptoms: Walking Associated Symptoms Preceding Syncopal Episode: Lightheadedness Seizure Or Post-ictal Symptoms: None Fall Associated With With Symptoms: No Severity: None Recent travel outside of the [place]: No Additional History Per: Patient Past Medical History Reviewed: Historical Data, Nursing Documentation, Vital Signs Vital Signs: Last Vital Signs Temp 98.1 F 11/06/18 23:18 Pulse 92 H 11/06/18 23:18 Resp 20 11/06/18 23:18 BP 102/54 L 11/07/18 00:02 Pulse Ox 100 11/06/18 23:18 - Medical History PMH: Anemia, Bronchitis, Gall Bladder Disease, Kidney Stones (LT STENT), Chronic Kidney Disease Surgical History: Appendectomy (in 1990), Cholecystectomy, Tonsillectomy, - [facility] Procedures DILATION OF LEFT URETER WITH INTRALUMINAL DEVICE, ENDO (12/18/17) FLUOROSCOPY KIDNEY, URETER, BLADDER, L W L OSM CONTRAST (12/18/17) LOW CERVICAL (04/01/14) Family History: States: Unknown Family Hx - Social History Hx Tobacco Use: No Hx Alcohol Use: No Hx Substance Use: No - Immunization History Hx Tetanus Toxoid Vaccination: No Hx Influenza Vaccination: Yes (06/2018) Hx Pneumococcal Vaccination: No Review Of Systems Constitutional: Negative for: Fever, Chills Cardiovascular: Negative for: Chest Pain Respiratory: Negative for: Shortness of Breath Gastrointestinal: Negative for: Nausea, Vomiting, Abdominal Pain Skin: Negative for: Rash Neurological: Positive for: Dizziness. Negative for: Weakness, Numbness, Headache Physical Exam - Physical Exam Appears: Non-toxic, No Acute Distress Skin: Warm, Dry, Pale Head: Normacephalic Eye(s): bilateral: Normal Inspection Oral Mucosa: Other (pale) Neck: Supple Chest: Symmetrical Cardiovascular: Rhythm Regular Respiratory: No Rales, No Rhonchi, No Wheezing Gastrointestinal/Abdominal: Soft, No Tenderness Extremity: Bilateral: Atraumatic, Normal Color And Temperature, Normal ROM Neurological/Psych: Oriented x3, Normal Speech, Normal Cognition Gait: Steady ED Course And Treatment - Laboratory Results Result Diagrams: 11/07/18 00:55 11/07/18 00:55 ECG: Interpreted By Me, Viewed By Me ECG Rhythm: Sinus Rhythm (78), Nonspecific Changes O2 Sat by Pulse Oximetry: 100 (ON RA) Pulse Ox Interpretation: Normal Progress Note: Plan: - Labs. - IV fluids. - EKG. - UA Reevaluation Time: 02:04 Reassessment Condition: Improved Medical Decision Making Medical Decision Making: Upon provider reevaluation patient is feeling better, is medically stable, and requires no further treatment in the ED at this time. Patient will be discharged home . Counseling was provided and all questions were answered regarding diagnosis and need for follow up with dr lino ledezma. There is agreement to discharge plan. Return if symptoms persist or worsen. Disposition Counseled Patient/Family Regarding: Studies Performed, Diagnosis, Need For Followup - Disposition Referrals: Cristiano Ledezma MD [Primary Care Provider] - Disposition: HOME/ ROUTINE Disposition Time: 00:30 Condition: FAIR Additional Instructions: Please return if symptoms recur Prescriptions: Benzonatate [Tessalon Perles] 100 mg PO TID PRN #21 sgl PRN Reason: Cough Instructions: Dizziness, Nonvertigo, (DC) Forms: [facility] (American), Work Excuse - Clinical Impression Clinical Impression: Dizziness, Anemia - Scribe Statement The provider has reviewed the documentation as recorded by the Scribe Syed Delong All medical record entries made by the Scribe were at my direction and personally dictated by me. I have reviewed the chart and agree that the record accurately reflects my personal performance of the history, physical exam, medical decision making, and the department course for this patient. I have also personally directed, reviewed, and agree with the discharge instructions and disposition.
[2018-11-07] MEDS ORDERED: Sodium Chloride 0.9% 1,000 ML ONE (00:45)
[2018-11-07 00:59] LABS: BASO # 0.1 K/uL (0.0-0.2); EOS # 0.1 K/uL (0.0-0.7); HEMOGLOBIN 10.1 g/dL (11.0-16.0); LYMPH # 2.7 K/uL (1.0-4.3); LYMPH % 49.8 % (20.0-40.0); MEAN CORPUSCULAR HEMOGLOBIN 27.8 pg (27.0-31.0); MEAN CORPUSCULAR HGB CONC 33.4 g/dL (33.0-37.0); MEAN PLATELET VOLUME 7.7 fL (7.2-11.7); MONO # 0.4 K/uL (0.0-0.8); MONO % 8.1 % (0.0-10.0); NEUT # 2.1 K/uL (1.8-7.0); NEUT % 39.1 % (50.0-75.0); RBC 3.64 Mil/uL (3.80-5.20); RED CELL DISTRIBUTION WIDTH 14.8 % (11.5-14.5); WHITE BLOOD COUNT 5.4 K/uL (4.8-10.8)
[2018-11-07 01:02] LABS: SQUAMOUS EPITHIAL < 1 /hpf (0-5)
[2018-11-07 01:03] LABS: HCG,QUALITATIVE URINE NEGATIVE (NEGATIVE)
[2018-11-07 01:07] LABS: PROTHROMBIN TIME 11.4 SECONDS (9.7-12.2)
[2018-11-07 01:09] LABS: URINE BILIRUBIN NEGATIVE (NEGATIVE); URINE CLARITY Clear (Clear); URINE COLOR YELLOW (YELLOW); URINE GLUCOSE (UA) NEGATIVE (Normal)
[2018-11-07 01:10] LABS: URINE BLOOD LARGE (NEGATIVE); URINE LEUKOCYTE ESTERASE NEGATIVE Leu/uL (Negative); URINE PROTEIN NEGATIVE (NEGATIVE)
[2018-11-07 01:14] LABS: ALB/GLOB RATIO 1.3 (1.0-2.1); ALT/SGPT 9 U/L (9-52); AST/SGOT 24 U/L (14-36); BLOOD UREA NITROGEN 13 mg/dL (7-17); CALCIUM 8.6 mg/dl (8.6-10.4); GFR NON-AFRICAN AMERICAN > 60
[2018-11-07 02:19] VITALS: BP 104/65; PULSE 74; TEMP 98.2; O2SAT 99
--- NOTE | 2018-11-09 22:18 | CARD ---
APPROVED REPORT Date of service: 11/07/2018 EKG Measurement Heart [id number] <Conclusion> Normal sinus rhythm Normal ECG
== END 2018-11-07 02:18 | disposition home or self-care (01) ==
LOC: SUPCPDRO 23:06 → C.ER 23:06
DX: R42 Dizziness and giddiness (principal); D64.9 Anemia, unspecified
CPT/HCPCS: 80053; 81001; 84484; 84703; 85025; 85610; 85730; 86850; 86900; 93005; 99285; J7030

== ENCOUNTER 2018-11-16 12:46 | Outpatient (CLI) | payer OTHER | END 2018-11-16 12:47 | disposition home or self-care (01) | LOC: C.MAMMO 12:47 ==